=== PATIENT | female | born 1985 | race Caucasian/White ===

== ENCOUNTER → 2017-08-18 08:47 | Outpatient (CLI) | payer SELFPAY ==
[2017-08-18 10:08] LABS: Progesterone Level 56.39 ng/mL (See Comment)
[2017-08-18 11:34] LABS: hCG Titer Quant., Serum 1343 mIU/mL (<9 non-preg)
== END ==
PROVIDERS: Visit Provider Obstetrics & Gynecology
DX: O26.21 Pregnancy care for patient with recurrent pregnancy loss, first trimester (principal); Z3A.00 Weeks of gestation of pregnancy not specified
CPT/HCPCS: 36415; 84144; 84702

== ENCOUNTER → 2017-08-21 08:53 | Outpatient (CLI) | payer SELFPAY ==
[2017-08-21 10:18] LABS: hCG Titer Quant., Serum 4390 mIU/mL (<9 non-preg)
== END ==
PROVIDERS: Visit Provider Obstetrics & Gynecology
DX: O26.21 Pregnancy care for patient with recurrent pregnancy loss, first trimester (principal); Z3A.00 Weeks of gestation of pregnancy not specified
CPT/HCPCS: 36415; 84702

== ENCOUNTER → 2017-08-24 09:44 | Outpatient (CLI) | payer SELFPAY ==
[2017-08-24 12:47] LABS: Chlamydia Trachomatis by PCR Negative (Negative); Neisserai gonorrhoeae by PCR Negative (Negative); Probe Check PASS; Sample Adequacy Control PASS; Specimen Processing Control PASS
[2017-08-28 16:57] LABS: HPV Reflexed? NOT INDICATED
== END ==
PROVIDERS: Visit Provider Obstetrics & Gynecology
DX: Z12.4 Encounter for screening for malignant neoplasm of cervix (principal); Z11.3 Encounter for screening for infections with a predominantly sexual mode of transmission
CPT/HCPCS: 87491; 87591; 88175; G0145

== ENCOUNTER → 2017-09-07 10:07 | Outpatient (CLI) | payer MEDICAID, SELFPAY ==
[2017-09-07 10:44] LABS: Absolute Lymphocyte Count 2.37 X10^3/ul (0.83-4.51); Basophil# 0.02 X10^3/uL; Basophil% 0.2 % (0-1); Eosinophil# 0.14 X10^3/uL; Eosinophils% 1.6 % (0-5); Hematocrit 40.2 % (37-47); Hemoglobin 13.6 g/dl (12.0-15.0); Lymphocyte # 2.37 X10^3/ul (4.0); Lymphocyte % 26.7 % (19-41); Mean Corp Hgb Conc 33.8 g/gl (32-36); Mean Corpuscular Hgb 28.8 pg (27.0-32.0); Mean Platelet Vol. 9.8 fl (6.2-12.0); Monocyte# 0.36 X10^3/uL; Monocyte% 4.1 % (0-10); Neutrophil # 5.97 X10^3/uL (2.7-7.7); Neutrophil % 67.3 % (47-70); POSITIVE COUNT NO; POSITIVE DIFFERENTIAL NO; POSITIVE MORPHOLOGY NO; Platelet Count 293 K/mm3 (150-450); RBC Distribution Width CV 13.5 % (11.6-14.6); RBC Distribution Width SD 42.1 fl (35.1-43.9); Red Blood Count 4.73 M/mm3 (4.2-5.4); White Blood Count 8.9 K/mm3 (4.4-11.0)
[2017-09-07 10:52] LABS: Color, Urine Yellow (Yellow); Glucose, Dipstick Normal (Normal); Ketone-Dipstick Negative (Negative); Leukocyte Esterase-Dipstick 25 /ul (Negative); Nitrite-Dipstick Negative (Negative); Occult Blood-Urine Negative /ul (Negative); Protein-Dipstick Negative (Negative); Specific Gravity, Urine 1.005 (1.002-1.030); Urine Bilirubin Dipstick Negative (Negative); Urine Clarity Sl. Cloudy (Clear); Urine Urobilinogen Normal (Normal)
[2017-09-07 10:56] LABS: COTININE Drug Screen Positive (<200 ng/mL)
[2017-09-07 11:04] LABS: Amphetamine Urine VISTA NEGATIVE (<1000 ng/mL); Barbiturate Urine VISTA NEGATIVE (< 200 ng/mL); Benzodiazepine Urine VISTA NEGATIVE (< 200 ng/mL); Cocaine Urine VISTA NEGATIVE (< 300 ng/mL); Ecstacy Urine VISTA NEGATIVE (< 500 ng/mL); Methadone Urine VISTA NEGATIVE (< 300 ng/mL); PCP Urine VISTA NEGATIVE (< 25 ng/mL); THC Urine VISTA NEGATIVE (< 50 ng/mL); Vista UDS pH Range 6
[2017-09-07 11:12] LABS: Thyroid Stim Hormone (TSH) 2.33 uIU/mL (0.358-3.74)
[2017-09-08 01:13] LABS: Prenatal RPR NONREACTIVE (NONREACTIVE)
[2017-09-08 10:39] LABS: HIV - WCH Non-Reactive (Nonreactive); Rubella IgG 18.7 IU/mL
[2017-09-08 11:52] LABS: HEPATITIS B SURFACE AG Negative (Negative); Hep C Antibodies <0.1 s/co ratio (0.0-0.9)
== END ==
PROVIDERS: Visit Provider Obstetrics & Gynecology
DX: Z34.81 Encounter for supervision of other normal pregnancy, first trimester (principal)
CPT/HCPCS: 36415; 80307; 81002; 84443; 85025; 86703; 86762; 86803; 87340

== ENCOUNTER → 2017-11-14 09:37 | Outpatient (CLI) | payer MEDICAID, SELFPAY ==
[2017-11-21 16:11] LABS: AFP MoM Value 0.81 (.); AFP Value-EIA 21.7 ng/mL (.); Comment Report (.); DIA MoM Value 1.66 (.); DIA Value-EIA 210.25 pg/mL (.); DSR (By Age) 518 (.); DSR (Second Trimester) 3602 (.); Gestational Age 16.6 WEEKS (.); Insulin Dep Diabetes No (.); Maternal Age At EDD 32.1 yr (.); hCG MoM 0.52 (.); hCG Value 13002 mIU/mL (.)
[2017-11-22 11:38] LABS: Gestat. Age Based On Ultrasound (.)
== END ==
PROVIDERS: Visit Provider Obstetrics & Gynecology
DX: Z34.82 Encounter for supervision of other normal pregnancy, second trimester (principal)
CPT/HCPCS: 36415; 82105; 82677; 84702; 86336

== ENCOUNTER → 2018-02-06 12:20 | Outpatient (CLI) | payer MEDICAID, SELFPAY ==
[2018-02-06 12:28] LABS: Hematocrit 35.9 % (37-47); Mean Corp Hgb Conc 33.4 g/gl (32-36); Mean Corpuscular Hgb 30.3 pg (27.0-32.0); Mean Corpuscular Volume 90.7 fL (81-99); Mean Platelet Vol. 10.8 fl (6.2-12.0); Platelet Count 267 K/mm3 (150-450); RBC Distribution Width SD 42.8 fl (35.1-43.9); Red Blood Count 3.96 M/mm3 (4.2-5.4); White Blood Count 10.2 K/mm3 (4.4-11.0)
[2018-02-06 12:29] LABS: Scan Indicated on CBC? Y/N NO
[2018-02-06 12:39] LABS: Glucose Challenge Gest 1H 50g 127 mg/dL (70-140)
== END ==
PROVIDERS: Visit Provider Obstetrics & Gynecology
DX: Z34.83 Encounter for supervision of other normal pregnancy, third trimester (principal)
CPT/HCPCS: 82950; 85027

== ENCOUNTER 2018-02-23 18:45 | Outpatient (CLI) | payer MEDICAID, SELFPAY ==
[2018-02-23 19:28] VITALS: BMI 37.4
--- NOTE | 2018-02-23 23:55 | OB.TRI.NOTE ---
History of Present Illness Date of Service: 02/23/18 Reason For Visit: DECREASED MOVEMENT Final ESE: 04/27/18 Final ESE Source: US <20 weeks Gestational age: 31 weeks 0 days History of Present Illness: 33yo at 31wga with c/o decreased movement Allergies bee venom protein (honey bee) Allergy (Verified 02/23/18 19:31) Anaphylaxis Physical Exam Vitals: VSS NST - FHR Rate Baby A Baseline: 135 Variability:: Moderate Accelerations:: 15 x 15 Decelerations:: None NST Reactive:: Yes FHR Category:: Category I Uterine Activity:: 0-05/10 Impression/Plan 33yo @ 31 wga with decreased FM -Reactive NST -Pt reported movement during observation -d/c home
== END 2018-02-23 20:00 | disposition home or self-care (01) ==
LOC: WPOUT 19:18 → WP 19:19
PROVIDERS: Referring Provider Obstetrics & Gynecology; Visit Provider Obstetrics & Gynecology
DX: O36.8130 Decreased fetal movements, third trimester, not applicable or unspecified (principal); Z3A.31 31 weeks gestation of pregnancy
CPT/HCPCS: 59025; 59050; 99218; G0378

== ENCOUNTER → 2018-03-27 14:41 | Outpatient (CLI) | payer MEDICAID, SELFPAY ==
--- OUTSIDE RECORDS SUMMARY | 2018-05-23 06:40 | XMS RPT_ITS ---
:1985 Author Organization [place] Support Name Relationship Address Phone LATONYA VELASCO Unavailable [address] + [address] [place] [address] [facility] Unavailable [address] + [place] [address] LATONYA VELASCO Unavailable [address] + [place] [address] [facility] Unavailable [address] + [place] [address] LATONYA VELASCO Unavailable [address] + [place] [address] [facility] Unavailable [address] + [place] [address] LATONYA VELASCO Unavailable [address] + [place] [address] [facility] Unavailable [address] + [place] [address] KRISTA LATONYA Unavailable [address] + [place] [address] [facility] Unavailable [address] +. [place] [address] LATONYA VELASCO Unavailable [address] + [place] [address] [facility] Unavailable [address] +. [place] [address] LATONYA VELASCO Unavailable [address] + [address] [place], [place] [id number] NOT GIVEN Unavailable Unavailable Unavailable LATONYA VELASCO Unavailable [address] + [place] [address] [facility] Unavailable [address] +. [place] [address] LATONYA VELASCO Unavailable [address] + [place] [address] [facility] Unavailable [address] +. [place] [address] LATONYA VELASCO Unavailable [address] + [place] [address] [facility] Unavailable [address] +. [place] [address] LATONYA VELASCO Unavailable [address] + [place] [address] [facility] Unavailable [address] +. [place] [address] Care Team Providers Name Role Phone STACY MACK Admitting Unavailable STACY MACK Attending Unavailable NO, DOCTOR ON Referring Unavailable STACY MACK Primary Care Unavailable NO, DOCTOR ON Consulting Unavailable Sealalon, Donald Attending Unavailable Seals, Donald Attending Unavailable Sterling, David Attending Unavailable Vo-Benjamín, Margot Attending Unavailable Vo-Benjamín, Margot Referring Unavailable Seals, Donald Attending Unavailable Omar, Crystal Attending Unavailable Seals, Donald Attending Unavailable Seals, Donald Attending Unavailable Seals, Donald Attending Unavailable Seals, Donald Admitting Unavailable Seals, Donald Attending Unavailable Seals, Donald Referring Unavailable Primay Care Physicia, No Primary Care Unavailable PROBLEMS PROBLEMS DATE TYPE CONDITION / CODE ATTENDING STATUS SOURCE 03/27/2018 Unknown Z36.85 - Encounter Donald Walls Active [place] for [facility] screening for Hospital Streptococcus B / Repository Z36.85(ICD-10) 02/06/2018 Unknown Z34.83 - Encounter Donald Walls Active [place] for supervision of Community other normal Hospital , third Repository trimester / Z34.83(ICD-10) 11/21/2017 Unknown Z34.82 - Encounter Crystal Nelson Active [place] for supervision of Community other normal Hospital , second Repository trimester / Z34.82(ICD-10) 09/07/2017 Unknown Z34.81 - Encounter Donald Walls Active [place] for supervision of Community other normal Hospital , first Repository trimester / Z34.81(ICD-10) 08/24/2017 Unknown Z12.4 - Encounter Titi Donald Active [place] for screening for Community malignant neoplasm Hospital of cervix / Repository Z12.4(ICD-10) 08/24/2017 Unknown Z11.3 - Encounter Titi Donald Active [place] for screening for Community infections with a Hospital predominantly Repository sexual mode of transmission / Z11.3(ICD-10) PROCEDURES PROCEDURES No Procedure Records FoundRESULTS RESULTS DISCHARGE SUMMARY Observed: 04/17/2018 Status: F Source: CARRIE 8:30 AM [facility] REPOSITORY [facility] Medical Records Department [address] [address] Discharge Summary 04/17/18 0828 MR#: [id number] Acct: [id number] Name: ROSARIO VELASCO Rep #: [id number] : 1985 33 From: Donald Walls MD PCP: Care Physician, No Primary Status: ADM IN Location: [place] [address] Discharge Date and Diagnosis Date of Admission: 04/15/18 Date of Discharge: 04/17/18 - Primary Discharge Diagnosis S/P Hospital Course and Treatment Operations: None Procedures: - - Summary of Care Provided: The patient is a 33 year old F [] Admitted at [address] in advanced active labor. Progressed to FD then pushed for a short time to deliver a live female neionate without complication. Post course unremarkable. Discharged home on PP day#2. - Physical Exam Vital Signs Temp Pulse Resp BP Pulse Ox 97.0 F L 87 16 132/67 H 100 04/17/18 08:15 04/17/18 08:15 04/17/18 08:15 04/17/18 08:15 04/17/18 08:15 Oxygen Delivery Method Room Air Weight: 248 lb Body Mass Index (BMI) 37.7 Intake and Output for Last 24 Hours Output Total 550 / 550 Balance -550 / -550 Discharge Diet: No Restrictions Discharge Activity: Return to Normal Activity, May Drive, May Shower Return to work on:: 06/17/18 May resume sexual activity in: 6 weeks Call your doctor if your incision/area has: Sudden Increased Bleeding, Increased Pain/ Swelling, Foul Smelling Discharge Call your doctor if you observe: Fever of 101 or Higher, Inability to urinate, Inability to have a bowel movement, Using more than one pad per hour, Shortness of breath, Chest pain, Calf discomfort, Uncontrolled pain Cleanse incision/area with: Soap AND Water Home Medications: Medications to take at Discharge Pantoprazole Sodium [Protonix] 40 mg PO DAILY 02/23/18 Vits [Prenatabs FA ] 1 tablet PO DAILY 02/23/18 Enoxaparin [Lovenox] 40 mg SC DAILY@0600 syringe 04/16/18 Ibuprofen 600 mg PO 4X/DAY #30 tab 04/16/18 Following Prescrptions Were Given to Patient: Ibuprofen 600 mg PO 4X/DAY #30 tab Primary Care Physician: Care Physician,No Primary [Primary Care Provider] - Please Follow Up With: Donald Walls MD When: 6 weeks Disposition: Home Minutes spent on discharge:: 15 Patient Condition:: Good Medical Necessity - Tobacco Use Smoking Status: Current every day smoker Meaningful Use Info Meaningful Use Diagnoses (Choose all that apply): None applicable 04/17/18 0830 <Electronically signed by Donald Walls MD> Date Donald Walls MD Cosigner Signature (if applicable): Date CC: No Primary Care Physician; Donald Walls MD Signed CBC-COMPLETE BLOOD CNT Collected: 04/16/2018 Status: F Source: CARRIE NO DIFF 5:35 AM [facility] REPOSITORY Order Comment: Reason for Laboratory Test Day #1 TYPE CODE TESTS RESULT OUT OF RANGE REFERENCE UNITS LAB L100.1000 4.4-11.0 K/mm3 High WBC 19.1 LAB L100.1200 4.2-5.4 M/mm3 Low RBC 3.59 LAB L100.1300 12.0-15.0 g/dl Low HGB 10.2 LAB L100.1400 37-47 % Low HCT 31.0 LAB L100.1500 81-99 fL Normal MCV 86.4 LAB L100.1600 27.0-32.0 pg Normal MCH 28.4 LAB L100.1700 32-36 g/gl Normal MCHC 32.9 LAB L100.1810 11.6-14.6 % Normal RDW CV 13.2 LAB L100.1820 35.1-43.9 fl Normal RDW SD 40.4 LAB L100.1900 150-450 K/mm3 Normal PLT 233 LAB L100.2000 6.2-12.0 fl Normal MPV 10.2 Performed By: #### L100.0500 #### [facility] [address] [facility] [place], [place], [id number] CBC-COMPLETE BLOOD CNT Collected: 04/16/2018 Status: F Source: TWISP NO DIFF 12:45 AM [facility] REPOSITORY TYPE CODE TESTS RESULT OUT OF RANGE REFERENCE UNITS LAB L100.1000 4.4-11.0 K/mm3 High WBC 18.8 LAB L100.1200 4.2-5.4 M/mm3 Low RBC 3.96 LAB L100.1300 12.0-15.0 g/dl Low HGB 11.3 LAB L100.1400 37-47 % Low HCT 34.0 LAB L100.1500 81-99 fL Normal MCV 85.9 LAB L100.1600 27.0-32.0 pg Normal MCH 28.5 LAB L100.1700 32-36 g/gl Normal MCHC 33.2 LAB L100.1810 11.6-14.6 % Normal RDW CV 13.2 LAB L100.1820 35.1-43.9 fl Normal RDW SD 40.8 LAB L100.1900 150-450 K/mm3 Normal PLT 243 LAB L100.2000 6.2-12.0 fl Normal MPV 10.5 Performed By: #### L100.0500 #### [facility] [address] [place], [place], [id number] TYPE AND SCREEN Collected: 04/16/2018 Status: F Source: TWISP 12:45 AM [facility] REPOSITORY Order Comment: Reason for Type AND Screen/Red Cells: ROUTINE TYPE CODE TESTS RESULT OUT OF RANGE REFERENCE UNITS LAB B10.0800 O Normal BLOOD TYPE GEL POSITIVE LAB B100.4000 Normal Antibody NEGATIVE Screen Performed By: #### B101.7450 #### [facility] [address] [place], [address] DISCHARGE INSTRUCTION Observed: 04/16/2018 Status: F Source: CARRIE 12:30 AM [facility] REPOSITORY [facility] Medical Records Department [address] [address] Instructions for Home/Discharge Instructions 04/16/18 0029 MR#: [id number] Acct: [id number] Name: ROSARIO VELASCO Rep #: [id number] : 1985 33 From: Donald Walls MD PCP: Care Physician, No Primary Status: ADM IN Discharge Diet: No Restrictions Discharge Activity: Return to Normal Activity, May Drive, May Shower Return to work on:: 06/17/18 May resume sexual activity in: 6 weeks Call your doctor if your incision/area has: Sudden Increased Bleeding, Increased Pain/ Swelling, Foul Smelling Discharge Call your doctor if you observe: Fever of 101 or Higher, Inability to urinate, Inability to have a bowel movement, Using more than one pad per hour, Shortness of breath, Chest pain, Calf discomfort, Uncontrolled pain Cleanse incision/area with: Soap AND Water Additional Instructions: If you experience any of the following, contact your healthcare provider. * Bleeding that soaks a pad every hour for 2 hours * Fever 100.4 or higher * Unrelieved incision or abdominal pain * Swelling, redness, discharge or bleeding from your incision or episiotomy site * Your incision begins to separate * Problems urinating (including inability to urinate or burning while urinating). * Visual changes * Severe headache * Flu-like symptoms * Pain or redness in one of both of your breasts * Pain, warmth, tenderness or swelling in your legs, especially the calf area * Frequent nausea and vomiting * Symptoms of depression or anxiety If you experience any of the following, call 911 or go to the nearest Emergency Room. * Chest pain * Problems breathing * Seizure activity * Partial or complete paralysis of a body part, slurred speech, weakness or drooping of the face, or a sudden inability to walk or hold your balance Allergies/Adverse Reactions: Allergies bee venom protein (honey bee) Allergy (Verified 04/15/18 23:19) Anaphylaxis Medications to take at Discharge Pantoprazole Sodium [Protonix] 40 mg PO DAILY 02/23/18 Vits [Prenatabs FA ] 1 tablet PO DAILY 02/23/18 Enoxaparin [Lovenox] 40 mg SC DAILY@0600 syringe 04/16/18 Ibuprofen 600 mg PO 4X/DAY #30 tab 04/16/18 The following prescriptions were given: Ibuprofen 600 mg PO 4X/DAY #30 tab Please Follow Up With: Donald Walls MD When: 6 weeks Primary Care Physician: Care Physician,No Primary [Primary Care Provider] - Test Results: Test results from this visit will be discussed in further detail at your follow-up appointment, if applicable. Proposed Discharge Date: 04/17/18 04/16/1829 <Electronically signed by Donald Walls MD> Date Donald Walls MD CC: No Primary Care Physician OPERATIVE REPORT Observed: 04/16/2018 Status: F Source: TWISP 12:27 AM [facility] REPOSITORY [facility] Medical Records Department [address] [place] [address] Operative Report 04/16/18 0023 MR#: [id number] Acct: [id number] Name: ROSARIO VELASCO Rep #: [id number] : 1985 33 From: Donald Walls MD PCP: Care Physician, No Primary Status: ADM IN Location: [place] [id number] Vaginal Delivery Maternal Presentation: Active Labor 38w4d ega in active labor Amniotic Membrane Rupture Type: Artificial Rupture of Membrane time: 2330 Amniotic Fluid Description: Moderate meconium Final ESE: 04/25/18 Final ESE Source: US <20 weeks Gestational age: 38 Weeks and 5 Days doctor who attended delivery (if requested by OB): Adriana Elise Date of Procedure: 04/15/18 Pre-Operative Diagnosis: Labor Post-Operative Diagnosis: same Surgery/ Procedure Performed: Spontaneous Vaginal Delivery Type of Anesthesia: None Description of Procedure: Presented at 8 cm dilated. After AROM progressed within 10 minutes to FD then pushed for 2 contractions to deliver a live female without complication. At delivery the cord was clamped and cut and the baby taken to the warmer for evaluation. Apgars were 8/9. The placenta was delivered spontaneously intact with a marginally located 3VC with possible vessels transversing the membranes. Meconium staing was noted. The uterus contracted well. The cervix and vagina was inspected and there was a small posterior vaginal first degree tear. This was repaired under local anesthetic with 2-0 Vicryl Presentation: Vertex Placental Delivery Description: Spontaneous Placenta Disposition: Sent to Pathology Percentage of Placenta Abruption: 0 Cord Vessel Description: 3 Vessels Nuchal Cord Compression: Without compression Cord Entanglement: None Estimated Blood Loss: 400cc Infant A gender: Female (1 minute): 8 (5 minute): 9 Episiotomy Description: None Laceration: Midline, Vaginal Extension/lac, 1st degree Medications given after delivery: IV Pitocin Complications: None 04/16/18 0027 <Electronically signed by Donald Walls MD> Date Donald Walls MD CC: No Primary Care Physician; Donald Walls MD Signed PLACENTA Observed: 04/16/2018 Status: F Source: TWISP 12:19 AM [facility] REPOSITORY Patient: ROSARIO VELASCO : 1985 (33/) Acct Num: [id number] Phys: Donald Walls MD Unit Num: [id number] Loc: WP [id number] Specimen: [id number] Received: 04/16/18 - 0148 Spec Type: PLACENTA TISSUES 1 TISSUES: Placenta, NOS GROSS DESCRIPTION SPECIMEN: PLACENTA / CLINICAL INFORMATION: A. Weight: 3.584 B. Gestational Age: 38 weeks C. Sex: Female PLACENTAL WEIGHT (POST FIXATION): 493 gm PLACENTAL DIMENSIONS: 16.5 x 14 x 3 cm PLACENTAL SHAPE: Usual ovoid PLACENTAL WEIGHT FOR GESTATIONAL AGE: Within 10-99th percentile MEMBRANES - Present A. Insertion: Marginal B. Site of rupture from edge: At edge of placental disc C. Color of membrane: Payne-perez D. Abnormalities: None UMBILICAL CORD - Present A. Color: Payne-perez B. Insertion: Eccentric C. Length: 40 cm D. Diameter: 1.5 cm E. Number of vessels: Three F. Abnormalities: None PLACENTAL DISC - Present A. Color of surface: Payne-perez B. surface abnormalities: None C. Maternal cotyledons: Intact with minimal tears D. Attached retro placental clot: No clot E. Cut surface: Dark red and spongy F. Lesions: None G. Separate clot: Absent SECTIONS SUBMITTED: 1. Membrane roll and umbilical cord ( end notched) 2. Placental disc, and maternal surfaces 3. Placental disc, and maternal surfaces 4. Placental disc, and maternal surfaces AM: 04/16/18 TC:2 CPT: 93048 HEADER OPERATION: Vaginal delivery PRE-OP DIAGNOSIS: Meconium TISSUE SUBMITTED: Placenta MICROSCOPIC DESCRIPTION Slides are reviewed. MICROSCOPIC DIAGNOSIS Mckeon placenta (493 gm): Umbilical cord - trivascular with no inflammation. Placental membranes - acute chorionitis and deciduitis. Placental disc - Aaron-Amado change and acute and chronic decidual inflammation. AM: 04/17/18 Signed Maynor Bowers, 04/17/18 <signature on file> Performed By: #### PPLAC #### [facility] [address] [facility] [place], [place], [id number] Observed: 03/27/2018 Status: F Source: TWISP CULTURE, GROUP B 11:15 AM [facility] REPOSITORY Comments: VAGINAL/RECTAL CHANDRIKA Culture Group B Beta Streptococcus is not isolated. Performed By: #### M100.1800 #### [facility] [address] [place], [place], [address] CBC-COMPLETE BLOOD CNT Collected: 02/06/2018 Status: F Source: CARRIE NO DIFF 10:15 AM [facility] REPOSITORY TYPE CODE TESTS RESULT OUT OF RANGE REFERENCE UNITS LAB L100.1000 4.4-11.0 K/mm3 Normal WBC 10.2 LAB L100.1200 4.2-5.4 M/mm3 Low RBC 3.96 LAB L100.1300 12.0-15.0 g/dl Normal HGB 12.0 LAB L100.1400 37-47 % Low HCT 35.9 LAB L100.1500 81-99 fL Normal MCV 90.7 LAB L100.1600 27.0-32.0 pg Normal MCH 30.3 LAB L100.1700 32-36 g/gl Normal MCHC 33.4 LAB L100.1810 11.6-14.6 % Normal RDW CV 13.0 LAB L100.1820 35.1-43.9 fl Normal RDW SD 42.8 LAB L100.1900 150-450 K/mm3 Normal PLT 267 LAB L100.2000 6.2-12.0 fl Normal MPV 10.8 Performed By: #### L100.0500 #### [facility] [address] [place], [address] GLUCOSE CHALLENGE GEST Collected: 02/06/2018 Status: F Source: CARRIE 1H 50G 10:15 AM [facility] REPOSITORY TYPE CODE TESTS RESULT OUT OF RANGE REFERENCE UNITS LAB L501.0250 70-140 mg/dL Normal GLU GEST 127 50g 1H Performed By: #### L501.0250 #### [facility] [address] [place], [address] AFP TETRA QUAD Collected: 11/14/2017 Status: F Source: CARRIE SCREEN 9:43 AM [facility] REPOSITORY Order Comment: Is Patient ? Y Enter Completed Weeks of Gestation: 16.0 Patient's Weight (LBS.): 244 Race: / White Number of Fetuses: 1 Is Patient Insulin-Dependent Diabetic?: N TYPE CODE TESTS RESULT OUT OF REFERENCE UNITS RANGE LAB L3290.110 . 0 TEST Normal RESULTS: *Screen Negative* LAB L3290.120 . WEEKS 0 16.6 Normal GESTATIONAL AGE LAB L3290.130 . 0 GEST AGE Normal FROM Ultrasound Result Comment: 16.6 on 11/14/2017 LAB L3290.1400 . yr MATRNL AGE @ESE 32.1 Normal LAB L3290.1500 . RACE Normal LAB L3290.1600 . lbs WEIGHT 244 Normal LAB L3290.1700 . INS DEP DIABETE No Normal LAB L3290.1800 . MULT GESTATION No Normal LAB L3290.1900 . ng/mL AFP VALUE-EIA 21.7 Normal LAB L3290.2000 . AFP MOM VALUE 0.81 Normal LAB L3290.2100 . mIU/mL HCG VALUE 75276 Normal LAB L3290.2200 . HCG MOM 0.52 Normal LAB L3290.2300 . ng/mL UE3 VALUE 0.88 Normal LAB L3290.2400 . UE3 MOM 1.11 Normal LAB L3290.2500 . pg/mL TABBY VALUE-EIA Normal 210.25 LAB L3290.2600 . TABBY MOM VALUE 1.66 Normal LAB L3290.2700 . OSBR RISK 91056 Normal LAB L3290.2800 . DSR 2ND TRIMEST 3602 Normal LAB L3290.2900 . DSR (BY AGE) 518 Normal LAB L3290.3100 . T18 RISK Not Normal increased LAB L3290.3200 . T18 (BY AGE) Normal 1:2020 LAB L3290.3300 . INTERPRETATION Normal Comment Result Comment: Interpretation: Screen Negative This result is screen negative for OSB, Down Syndrome and Trisomy 18. The AFP MoM and patient specific risks calculated are based on the gestational age and the clinical information provided. This test can identify up to 80% of open neural tube defects. Closed neural tube defects and some open defects may not be detected by this test. The combination of maternal age, AFP, hCG, uE3, and TABBY identifies 75-80% of Down Syndrome. The combination of maternal age, AFP, hCG and uE3 identifies 60% of Trisomy 18 pregnancies. The [employer] recommends amniocentesis be offered to women age 35 and older. Recalculations are not recommended when gestational dating by LMP and ultrasound are within 10 days. Performed By: #### L3290.0100 #### [facility] (refer to report for specific site) refer to report for address and phone number US OB INITIAL< 14 Observed: 10/09/2017 Status: F [facility]; 1ST GESTATION 10:18 AM [place] [address] Patient: ROSARIO VELASCO Phone#: : 1985 Age: 32 Gender: F Pt. Type: ER Account: [id number] Location: [facility] Ordering: STACY MACK Exam Date: 10/07/2017/10:17 Family Phys: NO DOCTOR Charge Code: 864225 Physician: [place] Order #: [id number] DLP Dose#: PROCEDURE: OB INITIAL <14 WEEKS ULTRASOUND, TRANSABDOMINAL COMPARISON: [facility], , OB INITIAL <14 WEEKS, 11/16/2011, 11:25. INDICATIONS: Pelvic pain TECHNIQUE: Transabdominal pelvic ultrasound examinations were performed. FINDINGS: GESTATIONAL SAC: Present and normal appearing. POLE: Present and normal appearing. YOLK SAC: Not identified CARDIAC ACTIVITY: Present. 176 bpm UTERUS: Normal. ADNEXAE/OVARIES: Normal. CUL-DE-SAC: Normal. CERVICAL LENGTH: N/A CLINICAL AGE: 11 weeks one day SONOGRAPHIC AGE: 11 weeks 2 days PLACENTA: Unable to visualize due to age. AMNIOTIC FLUID VOLUME: Normal for age. OTHER: Negative. CONCLUSION: 1. SLIUP 11 weeks 2 days, ESE 04/26/2018. Dictated by: Prabha Moss MD on 10/09/2017 at 11:12 Approved by: Prabha Moss MD on 10/09/2017 at 11:12 EMERGENCY REPORT Observed: 10/09/2017 Status: F Source: [facility] 4:53 AM [facility] [place] [place] EMERGENCY ROOM REPORT NAME ACCOUNT SEX AGE ADMIT DISCHARGE PT MED. RECORD# NUMBER DATE DATE TYPE ROSARIO VELASCO [id number] F 32 10/07/17 10/07/17 3 R [id number] ROOM: ER DATE OF : 1985 DICTATING PHYSICIAN: Donald Liang CHIEF COMPLAINT/HISTORY OF PRESENT ILLNESS: This is a 32-year-old white female that is approximately 10 weeks , stating that she has some bilateral lower pelvic/abdominal pain. She describes it as cramping in nature. It does come and go. It does not last for long, but she has had it off and on. She has had 6 previous miscarriages, so she was somewhat concerned about it. She denies any vaginal bleeding or spotting. She sees Dr. Walls in [place] for OB- SPEECH LANGUAGE PATHOLOGY ASSISTANT. Presently rates the pain as a 5 on a severity scale of 1 to 10, as noted it is intermittent, it does not radiate through to her back. PAST MEDICAL HISTORY: Six previous miscarriages. PAST SURGICAL HISTORY: Include tonsillectomy. MEDICATIONS: She is presently on lovanox. She was not exactly sure why they have her on that, but she said it was somethign about a clotting disorder to help facilitate the . She aslo takes progesterone and baby aspirin and she is under the care of Dr. Walls in OB-SPEECH LANGUAGE PATHOLOGY ASSISTANT. ALLERGIES: No known drug allergies. SOCIAL HISTORY: She does not smoke. Does not drink alcohol. Lives at home with her . Last menstrual period was July 21 of this year. She is a 8, para with 6 previous miscarriages. REVIEW OF SYSTEMS: The patient denies any chest pain, shortness of breath, cough, sputum, wheezing. Does admit to some intermittent abdominal pain. Denies any nausea, vomiting, diarrhea, constipation, melena, hematochezia, headache, numbness, unsteady gait, weakness, neck or back pain, joint pain, skin rashes, swelling, hives, hayfever, swollen glands. Further review of systems negative. PHYSICAL EXAMINATION: Blood pressure is 146/102, pulse 98, respirations 18, temperature 98.2, pulse oximetry 96%. Weight 242 pounds. The patient is alert and oriented x3. She presently appears in no acute distress. She is very pleasant and cooperative, smiling. HEENT: Head appears atraumatic. Pupils are equal and reactive to light. Red reflex intact bilaterally. Extraocular muscles intact. No conjunctival injection. No scleral icterus or lid edema. Ears: TMs intact bilaterally. No erythema Page 1 of 3 ROSARIO VELASCO R Emergency Room Report noted. No external auditory canal edema or bleeding. Nose exhibits no rhinorrhea or epistaxis. Mouth: Mucous membranes are moist. No pharyngeal erythema. Uvula is midline and elevates. Neck is supple. Trachea is midline. No JVD or lymphadenopathy. No posterior cervical tenderness. No nuchal rigidity. Lungs are clear to auscultation in all lung yu. No adventitious sounds are noted. No accessory muscle use. CVS: Heart rate and rhythm is regular without murmur. Abdomen is soft, gravid, nontender with normoactive bowel sounds x4 quadrants. No guarding or rigidity. No rebound. No palpable abdominal masses. No hepatosplenomegaly. Back exhibits no midline or paraspinal region tenderness. No increased paraspinal muscle rigidyt. Negative Bin sign. Extremities: No edema or cyanosis. Peripheral pulses are intact. No motor or sensory deficits are noted. Hand hydraulic mechanic strong, symmetric. Skin is warm and dry. No diaphoresis or rash. Neurologic examination shows the patient to be alert and oriented x4. No motor or sensory deficits are noted. Normal speech. Pleasant, cooperative, with normal affect. DIAGNOSTIC DATA: Her pelvic ultrasound showed a single live intrauterine with estimated gestational age 11 weeks, 2 days. The heart rate was 176 beats per minute. When we took heart tones here, we got 135. Normal amniotic fluid volume. ESE April 26, 2018. No bleed. No features of ectopic. Right and left ovary are not seen. No free fluid in the pelvis. EMERGENCY DEPARTMENT COURSE AND TREATMENT: The patient denied any urinary urgency, frequency, dysuria, burning, but we went ahead and did a urine anyhow and it looks okay. She had a negative nitrite. The specific gravity is 1.010. Clarity was clear. She had 1 to 5 white cells with a trace of bacteria, but she also had a few epithelial cells. I did send that for culture, but I am not going to treat her because she is having no symptoms. DIAGNOSES: 1. Abdominal pain. 2. . PLAN/DISPOSITION: I went over these results with the patient and she feels much relieved. I did talk to her about some blood work, but she is feeling good enough and they have been checking blood work in the office. She does not want to wait for any blood work, so we are going to let her go home. Did advise her vaginal rest. No intercourse, tampons or douching and to follow up with Dr. Walls this coming week. If she had any worsening symptoms or any other problems, especially any vaginal bleeding, she is to return to the emergency department. The patient was discharged in a clinically stable condition. Nurse notes reviewed. Dictated By: Donald Liang DO 10/07/17 20:44 JOB #: [id number] Transcribed By: vanessa 10/08/17 09:52 Page 2 of 3 ROSARIO VELASCO Emergency Room Report Electronically signed by: E-Sign: Dr. Donald Liang D.O. 10/09/17 04:52 Page 3 of 3 ROSARIO VELASCO Emergency Room Report US OB INITIAL >OR= Observed: 10/07/2017 Status: F Source: NEERAJ SYED 14 WEEKS; 1ST GESTAT 7:49 PM [facility] REPOSITORY [place] [address] Patient: ROSARIO VELASCO Phone#: : 1985 Age: 32 Gender: F Pt. Type: ER Account: [id number] Location: 052 Ordering: STACY MACK Exam Date: 10/07/2017/10:17 Family Phys: NO DOCTOR Charge Code: 050031 Physician: [place] Order #: [id number] [id number] Dose#: PROCEDURE: OB INITIAL <14 WEEKS ULTRASOUND, TRANSABDOMINAL COMPARISON: [facility], , OB INITIAL <14 WEEKS, 11/16/2011, 11:25. INDICATIONS: Pelvic pain TECHNIQUE: Transabdominal pelvic ultrasound examinations were performed. FINDINGS: GESTATIONAL SAC: Present and normal appearing. POLE: Present and normal appearing. YOLK SAC: Not identified CARDIAC ACTIVITY: Present. 176 bpm UTERUS: Normal. ADNEXAE/OVARIES: Normal. CUL-DE-SAC: Normal. CERVICAL LENGTH: N/A CLINICAL AGE: 11 weeks one day SONOGRAPHIC AGE: 11 weeks 2 days PLACENTA: Unable to visualize due to age. AMNIOTIC FLUID VOLUME: Normal for age. OTHER: Negative. CONCLUSION: 1. SLIUP 11 weeks 2 days, ESE 04/26/2018. Dictated by: Prabha Moss MD on 10/09/2017 at 11:12 Approved by: Prabha Moss MD on 10/09/2017 at 11:12 URINALYSIS Collected: 10/07/2017 Status: F Source: NEERAJ SYED 7:48 PM [facility] REPOSITORY TYPE CODE TESTS RESULT OUT OF REFERENCE UNITS RANGE LAB URINALYSIS (LOINC) URINALYSIS Result Comment: URINALYSIS LAB Specimen Type(LOINC) Specimen Type UNSPECIFIED LAB Color(LOINC) NORMAL: YELLOW Color p.yel LAB Clarity(LOINC) NORMAL: CLEAR Clarity clear LAB ph(LOINC) NORMAL: 5.0-8.0 ph 7 LAB Protein(LOINC) NORMAL: NEGATIVE Protein NEG LAB Glucose(LOINC) NORMAL: NORMAL Glucose NORM LAB Ketone(LOINC) NORMAL: NEGATIVE Ketone NEG LAB Bilirubin(LOINC) NORMAL: NEGATIVE NEG Bilirubin LAB Blood(LOINC) NORMAL: NEGATIVE Blood NEG LAB Urobilinog(LOINC NORMAL: ) NORMAL NORM Urobilinog LAB Sp NORMAL: Lugoff(LOINC) 1.010-1.030 Sp 1.010 Lugoff LAB Nitrite(LOINC) NORMAL: NEGATIVE Nitrite NEG LAB Leukocytes(LOINC NORMAL: ) NEGATIVE 25 Abnormal Leukocytes LAB Microscopic(LOIN C) SEE Microscopic BELOW Result Comment: MICROSCOPIC LAB Wbc(LOINC) 0-5/hpf Wbc 1-5 LAB Rbc(LOINC) 0-3/hpf Rbc NONE LAB Casts(LOINC) Casts NONE LAB Crystals(LOINC) Crystals NONE LAB Amorphous(LOINC) Amorphous 1+ LAB Bacteria(LOINC) Bacteria TRACE LAB Epi Cells(LOINC) Epi Cells FEW LAB Mucous(LOINC) Mucous NONE LAB Yeast(LOINC) Yeast NONE Performed By: #### [id number] #### [facility],[address] [place] [address] Observed: 10/07/2017 Status: F Source: [facility] CULTURE URINE 7:48 PM [facility] REPOSITORY CULTURE URINE _URINE CULTURE_ M I C R O B I O L O G Y R E P O R T FINAL Antimicrobial Susceptibility and Organism Identification Report Specimen Number : [id number] Requested : 10/07/17 Specimen Source : URINE Collected : 10/07/17 19:48 [place] of Isolation : Emergency Room Received : 10/07/17 19:48 Requesting Physician : MARTINA Patient/Specimen Tests and Comments Specimen Comments FINAL REPORT: URINE COLONY COUNT: 50,000-100,000 CFU/CC >OR=TO 3 COLONY TYPES PROBABLE CONTAMINATION Tech : Source : URINE ID # : [id number] FINAL Report Date : / / : Collected : 10/07/17 19:48 10/10/17.1231.BKO. 10/09/17.1152.KLS. 10/10/17.1231.BKO.COMPLETE Performed By: #### [id number] #### Neeraj [facility],[address] [place] [address] URINE DRUG SCREEN Collected: 09/07/2017 Status: F Source: CARRIE (NABEEL) 10:10 AM [facility] REPOSITORY Order Comment: List of Drugs Taken or Suspected? UNK TYPE CODE TESTS RESULT OUT OF RANGE REFERENCE UNITS LAB L505.0075 TO BE Normal CONFIRMED Result Comment: CONFIRMATORY TESTING FOR ALL POSITIVE URINE DRUG SCREEN RESULTS WILL ONLY BE SENT OUT UPON PHYSICIAN ORDER. ANTWAN Urine Drug Screen methods provide only preliminary analytical test results. A more specific alternate chemical method must be used in order to obtain a confirmed analytical result. Gas chromatography/mass spectrometery (GC/MS) is the preferred confirmatory method. Clinical consideration and professional judgement should be applied to any drug of abuse test result, particularly when preliminary positive results are used. URINE TCA TESTING MUST BE ORDERED SEPARATELY. USE TEST MNEMONIC: UTCA LAB L505.5005 VISTA UDS PH 6 Normal LAB L505.5015 <1000 ng/mL AMPHETAMINES Normal NEGATIVE LAB L505.5025 < 200 ng/mL BARBITIURATES Normal NEGATIVE LAB L505.5035 < 200 ng/mL BENZODIAZIPINE Normal NEGATIVE LAB L505.5045 < 300 ng/mL COCAINE Normal NEGATIVE LAB L505.5055 < 500 ng/mL ECSTACY Normal NEGATIVE LAB L505.5065 < 300 ng/mL METHADONE Normal NEGATIVE LAB L505.5075 < 300 ng/mL OPIATES Normal NEGATIVE LAB L505.5085 < 25 ng/mL PCP Normal NEGATIVE LAB L505.5095 < 50 ng/mL THC Normal NEGATIVE Performed By: #### L505.5000, L505.6240 #### [facility] [address] [place], [place], [id number] NICOTINE URINE DRUG Collected: 09/07/2017 Status: F Source: TWISP SCREEN 10:10 AM [facility] REPOSITORY Order Comment: List of Drugs Taken or Suspected? UNK TYPE CODE TESTS RESULT OUT OF RANGE REFERENCE UNITS LAB L505.6250 TO BE Normal CONFIRMED Result Comment: CONFIRMATORY TESTING FOR ALL POSITIVE URINE DRUG SCREEN RESULTS WILL ONLY BE SENT OUT UPON PHYSICIAN ORDER. The results of Urine Drug Screen methods provide only preliminary analytical test results. A more specific alternate chemical method must be used in order to obtain a confirmed analytical result. Gas chromatography/mass spectrometery (GC/MS) is the preferred confirmatory method. Clinical consideration and professional judgement should be applied to any drug of abuse test result, particularly when preliminary positive results are used. LAB L505.6270 <200 ng/mL High COT DRG Positive SCREEN Result Comment: Cotinine is the first-stage metabolite of Nicotine. Performed By: #### L505.5000, L505.6240 #### [facility] [address] [place], [place], [address] CBC W/DIFF, AUTOMATED Collected: 09/07/2017 Status: F Source: CARRIE 10:10 AM [facility] REPOSITORY TYPE CODE TESTS RESULT OUT OF RANGE REFERENCE UNITS LAB L100.1000 4.4-11.0 K/mm3 Normal WBC 8.9 LAB L100.1200 4.2-5.4 M/mm3 Normal RBC 4.73 LAB L100.1300 12.0-15.0 g/dl Normal HGB 13.6 LAB L100.1400 37-47 % Normal HCT 40.2 LAB L100.1500 81-99 fL Normal MCV 85.0 LAB L100.1600 27.0-32.0 pg Normal MCH 28.8 LAB L100.1700 32-36 g/gl Normal MCHC 33.8 LAB L100.1810 11.6-14.6 % Normal RDW CV 13.5 LAB L100.1820 35.1-43.9 fl Normal RDW SD 42.1 LAB L100.1900 150-450 K/mm3 Normal PLT 293 LAB L100.2000 6.2-12.0 fl Normal MPV 9.8 LAB L100.2100 47-70 % Normal NEUT% 67.3 LAB L100.2200 19-41 % Normal LY% 26.7 LAB L100.2300 0-10 % Normal MONO% 4.1 LAB L100.2400 0-5 % Normal EO% 1.6 LAB L100.2500 0-1 % Normal BASO% 0.2 LAB L100.2550 0.0-0.9 % Normal IM GRAN % 0.100 Result Comment: IG% - Immature Granulocytes (promyelocytes, myelocytes and metamyelocytes) > 1% indicates that a LEFT SHIFT is Present. LAB L100.2620 2.0-7.7 X10 3/uL Normal Absolute Neut 6.0 LAB L100.2720 0.83-4.51 X10 3/ul Normal Absolute Lymph 2.37 Performed By: #### L100.0100 #### [facility] [address] [place], [place], [id number] URINALYSIS, ROUTINE Collected: 09/07/2017 Status: F Source: CARRIE (DIPSTICK) 10:10 AM [facility] REPOSITORY Order Comment: How was Urine Obtained? Urine, Random TYPE CODE TESTS RESULT OUT OF RANGE REFERENCE UNITS LAB L400.3000 Yellow COLOR Normal Yellow LAB L400.3050 Clear Normal CLARITY Sl. Cloudy LAB L400.3200 Normal mg/dl Normal GLUCOSE, UR Normal LAB L400.3300 Negative mg/dL Normal BILIRUBIN URINE Negative LAB L400.3400 Negative mg/dl Normal KETONE UR Negative LAB L400.3465 1.002-1.030 Normal SP.GR. DIPSTX 1.005 LAB L400.3550 5.0 - 8.0 pH UR Normal 7.0 LAB L400.3600 Negative mg/dl PROT Normal DIPSTX Negative LAB L400.3700 Normal mg/dl Normal UROBILI Normal LAB L400.3750 Negative Normal NITRITE UR Negative LAB L400.3780 Negative /ul Normal OCCULT BLOOD-UR Negative LAB L400.3800 Negative /ul High LEUK 25 ESTERASE Performed By: #### L400.2010 #### [facility] [address] [place], [place], [address] THYROID STIM HORMONE Collected: 09/07/2017 Status: F Source: TWISP (TSH) 10:10 AM [facility] REPOSITORY TYPE CODE TESTS RESULT OUT OF RANGE REFERENCE UNITS LAB L501.9520 0.358-3.74 uIU/mL Normal TSH 2.33 Performed By: #### L501.9520 #### [facility] [place], [place], [address] T AND S-NO Collected: 09/07/2017 Status: F Source: CARRIE CHARGE W/PNP 10:10 AM [facility] REPOSITORY Order Comment: Reason for Type AND Screen/Red Cells: Surgery? N TYPE CODE TESTS RESULT OUT OF RANGE REFERENCE UNITS LAB B10.0800 O Normal BLOOD POSITIVE TYPE GEL LAB B100.4050 Normal Ab SCREEN NEGATIVE GEL Performed By: #### B100.7550 #### [facility] [place], [place], [address] RPR Collected: 09/07/2017 Status: F Source: CARRIE 10:10 AM [facility] REPOSITORY TYPE CODE TESTS RESULT OUT OF REFERENCE UNITS RANGE LAB L700.5100 NONREACTIVE Normal RPR NONREACTIVE Performed By: #### L700.5100 #### [facility] [address] [place], [address] RUBELLA IGG Collected: 09/07/2017 Status: F Source: CARRIE 10:10 AM [facility] REPOSITORY TYPE CODE TESTS RESULT OUT OF RANGE REFERENCE UNITS LAB L509.4000 IU/mL Normal Rubella IgG 18.7 Result Comment: Antibody results Interpretation of Immune Status < 5 IU/ml Presumed Non-immune 5 - < 10 IU/ml Equivocal > or = 10 IU/ml Presumed Immune Performed By: #### L509.4000, L3890.6005 #### [facility] [address] [facility] [place], [place], [address] HIV - WCH Collected: 09/07/2017 Status: F Source: TWISP 10:10 AM [facility] REPOSITORY TYPE CODE TESTS RESULT OUT OF RANGE REFERENCE UNITS LAB L3890.6005 Nonreactive Normal HIV - WCH Non-Reactive Performed By: #### L509.4000, L3890.6005 #### [facility] [place], [address] HEPATITIS B SURFACE Collected: 09/07/2017 Status: F Source: CARRIE AG 10:10 AM [facility] REPOSITORY TYPE CODE TESTS RESULT OUT OF RANGE REFERENCE UNITS LAB L3100.0400 Negative Normal HB Negative SURF AG Result Comment: Performed at: [facility] [id number] Cleaner Laboratory Equipment: Vamshi Benitez PhD, Phone: [phone] Performed By: #### L3100.0390, L3100.0625 #### [facility] (refer to report for specific site) refer to report for address and phone number HEPATITIS C ANTIBODIES Collected: 09/07/2017 Status: F Source: TWISP 10:10 AM [facility] REPOSITORY TYPE CODE TESTS RESULT OUT OF RANGE REFERENCE UNITS LAB L3100.0650 0.0-0.9 s/co ratio Normal HEP C AB <0.1 Result Comment: Negative: < 0.8 Indeterminate: 0.8 - 0.9 Positive: > 0.9 The CDC recommends that a positive HCV antibody result be followed up with a HCV Nucleic Acid Amplification test (291994). Performed By: #### L3100.0390, L3100.0625 #### [facility] (refer to report for specific site) refer to report for address and phone number CT/NG WCH BY PCR Collected: 08/24/2017 Status: F Source: TWISP 8:45 AM [facility] REPOSITORY TYPE CODE TESTS RESULT OUT OF RANGE REFERENCE UNITS LAB L8200.2100 Negative Normal Chlam Negative Trac PCR LAB L8200.2200 Negative Normal NG by Negative PCR Performed By: #### L8200.1999 #### [facility] [address] [place], [address] PAP I-G W/RFX HRHPV Collected: 08/24/2017 Status: F Source: TWISP 8:45 AM [facility] REPOSITORY Order Comment: CYTOLOGY INFORMATION: - CLINICAL INFORMATION: - DATE LMP/MENOPAUSE: 07/21/17 LMP - COLLECTION VIAL: Thin Prep Vial - SPEECH LANGUAGE PATHOLOGY ASSISTANT SOURCE: CERVICAL/ENDOCERVICAL - COLLECTION TECHNIQUE: BRUSH/SPATULA Specimen Comment: [id number] Specimen Comment: No. of containers..01 ThinPrep Vial TYPE CODE TESTS RESULT OUT OF RANGE REFERENCE UNITS LAB L7400.0800 . Normal DIAGN Comment Result Comment: NEGATIVE FOR INTRAEPITHELIAL LESION AND MALIGNANCY. LAB L7400.0900 . Normal ADEQ Comment Result Comment: Satisfactory for evaluation. Endocervical and/or squamous metaplastic cells (endocervical component) are present. LAB L7400.1400 . Normal PERFORM Comment Result Comment: Soniya Cortes, Intermodal Dispatcher (ASCP) LAB L7400.2575 . Normal TEST METHOD Comment Result Comment: This liquid based ThinPrep(R) pap test was screened with the use of an image guided system. LAB L7400.2600 . Normal . COMM LAB L7400.2700 . Normal PAPSMR Comment Result Comment: The Pap smear is a screening test designed to aid in the detection of premalignant and malignant conditions of the uterine cervix. It is not a diagnostic procedure and should not be used as the sole means of detecting cervical cancer. Both false-positive and false-negative reports do occur. LAB L7400.2800 . Normal HPV RFLX Comment Result Comment: The HPV DNA reflex criteria were not met with this specimen result therefore, no HPV testing was performed. Performed at: - [facility] [place] [id number] Cleaner Laboratory Equipment: Val Puga MD, Phone: [phone] Performed By: #### L7400.0350 #### [facility] (refer to report for specific site) refer to report for address and phone number HCG TITER QUANT., Collected: 08/21/2017 Status: F Source: TWISP SERUM 8:55 AM [facility] REPOSITORY TYPE CODE TESTS RESULT OUT OF RANGE REFERENCE UNITS LAB L700.8000 <9 non-preg mIU/mL High HCG 4390 QUANT. Performed By: #### L700.8000 #### [facility] [address] [place], [place], [address] PROGESTERONE LEVEL Collected: 08/18/2017 Status: F Source: TWISP 8:53 AM [facility] REPOSITORY TYPE CODE TESTS RESULT OUT OF REFERENCE UNITS RANGE LAB L509.4001 See Comment ng/mL Progesterone Normal 56.39 Result Comment: Progesterone Reference Table: UNITS Female: Follicular 0.15 - 1.40 ng/mL Luteal 3.34 - 25.56 ng/mL Mid-luteal 4.44 - 28.03 ng/mL Postmenopausal 0.0 - 0.73 ng/mL : 1st Trimester 11.22 - 90.00 ng/mL 2nd Trimester 25.55 - 89.40 ng/mL 3rd Trimester 48.40 -422.50 ng/mL Performed By: #### L509.4001 #### [facility] [address] [place], [place], [address] HCG TITER QUANT., Collected: 08/18/2017 Status: F Source: TWISP SERUM 8:53 AM [facility] REPOSITORY TYPE CODE TESTS RESULT OUT OF RANGE REFERENCE UNITS LAB L700.8000 <9 non-preg mIU/mL High HCG 1343 QUANT. Performed By: #### L700.8000 #### [facility] [address] [place], [address] ALLERGIES ALLERGIES DATE TYPE / CODE NAME / CODE REACTION SEVERITY SOURCE Drug bee venom Anaphylaxis Unknown Boy[place] 8 Allergy/[id number]( protein ([facility] SN[facility]) bee)/[id number] Hospital 5(RXNORM) Repository Miscellaneous No Known Drug Moderate Neeraj Syed Allergy/956191518( Allergies ([facility]) Modifier) Hospital (Qualifier Repository Value) ENCOUNTERS ENCOUNTERS ADMIT/DISCHARGE ACCOUNT ADMITTING ENCOUNTER LOCATION SOURCE NUMBER CLASS 04/15/2018/ [id number] Donald Walls Inpatient Boy[place] Carrie 8 1 Encounter [facility] ing:WPRoom: Repository [id number]: 1 04/07/2018/ [id number] Ambulatory Carrie Boyden 8 9 [facility] ing:WPOUTRoom Repository : WP012 03/27/2018 [id number] Ambulatory Carrie Boyden 7 [facility] ing:LABSPEC Repository 02/23/2018/ [id number] Ambulatory Carrie Carrie 8 1 [facility] ing:WPOUTRoom Repository : WP014 02/06/2018 [id number] Ambulatory Carrie Carrie 0 [facility] ing:WOBLAB Repository 11/14/2017 [id number] Ambulatory Carrie Carrie 0 [facility] ing:WOBLAB Repository 10/07/2017/ [id number] STACY MACK Emergency [facility] [place] [address] 8 oom: ERBed: [facility] Repository 09/07/2017 [id number] Ambulatory Boyden Carrie 7 [facility] ing:WOBLAB Repository 08/24/2017 [id number] Ambulatory Carrie Carrie 3 [facility] ing:LABSPEC Repository 08/21/2017 [id number] Ambulatory Boyden Boyden 1 [facility] ing:WOBLAB Repository 08/18/2017 [id number] Ambulatory Carrie Boyden 0 [facility] ing:WOBLAB Repository PAYERS PAYERS ENCOUNTER GUARANTOR PAYER SUBSCRIBER SOURCE 04/15/2018 ROSARIO Valdes Primary ROSARIO [address] Insurance:CROOK RODRIGOB: [facility] [facility] [id number] Number: Repository [phone]: [phone] [id number] [phone] () Date:2559-63-98OQ [address] [place] [phone]: 04/15/2018 Secondary NOT GIVENUNK Carrie Insurance:SELF PAY [facility] Number: Effective Repository Date:2018-04-10 04/07/2018 ROSARIO R Primary ROSARIO R Boyden [address] Insurance:PARAMOUNT MACKEYDOB: Community 6[facility] [id number] [address]Sog: ([phone]) Number: Repository [phone] () [id number] Date:2683-04-35YG [address] [place] [phone]: 04/07/2018 Secondary NOT GIVENUNK Carrie Insurance:SELF PAY [facility] Number: Effective Repository Date:2018-04-07 03/27/2018 ROSARIO MACKEYPO Primary ROSARIO MACKEYDOB: Carrie [address] [place] [address], Insurance:PARAMOUNT [id number] [facility] [address]Cgj: [facility] Number: Repository () [id number] Date:6205-91-16GU [address] [place] [phone]: 03/27/2018 Secondary NOT GIVENUNK Boyden Insurance:SELF PAY [facility] Number: Effective Repository Date:2018-03-27 2018 ROSARIO MACKEYPO Primary ROSARIO MACKEYDOB: Carrie [address], Insurance:PARAMOUNT [id number] [facility] [address]Dqf: [facility] Number: Repository () [id number] Date:2775-08-26QB [address] [place] [phone]: 2018 Secondary NOT GIVENUNK Carrie Insurance:SELF PAY [facility] Number: Effective Repository Date:2018 02/06/2018 ROSARIO MACKEYPO Primary ROSARIO MACKEYDOB: Carrie [address], Insurance:CROOK [id number] [address]Smy: [facility] Number: Repository () [id number] Date:3968-46-88NH [address] [place] [phone]: 02/06/2018 Secondary NOT GIVENUNK Carrie Insurance:SELF PAY [facility] Number: Effective Repository Date:2018-02-06 11/14/2017 ROSARIO MACKEYPO Primary ROSARIO MACKEYDOB: Carrie [facility], Insurance:CROOK [id number] [facility] Hospital [address]Vfj: [facility] Number: Repository () [id number] Date:[id number] [address]DR: 11/14/2017 Secondary NOT GIVENUNK Carrie Insurance:SELF PAY [facility] Number: Effective Repository Date:2017-11-14 10/07/2017 ROSARIO R Primary ROSARIO R Neeraj Callahanne MACKEYDOB: Insurance:[facility]: [facility] [id number] ADVANTAGE [id number] Hospital [address] [facility] [address] Repository [place] Number: [facility] [id number]: Date:Plan Name: () 09/07/2017 ROSARIO MACKEYPO Primary ROSARIO MACKEYDOB: Carrie [address], Insurance:MEDICAIDPoli [id number] University Hospital [address]Bxb: [place] Number: [facility] [id number] Repository () Date:2017-09-07 09/07/2017 Secondary NOT GIVENUNK Carrie Insurance:SELF PAY [facility] Number: Effective Repository Date:2017-09-07 08/24/2017 ROSARIO RAY Primary Insurance:SELF NOT GIVENUNK [address] [address]Lzy: Number: Effective Hospital Date:2017-08-24 Repository () 08/21/2017 ROSARIO RAY Primary Insurance:SELF NOT GIVENUNK [address] [address]Npy: Number: Effective Hospital Date:2017-08-21 Repository () 08/18/2017 ROSARIO RAY Primary Insurance:SELF NOT GIVENUNK [address] [address]Dcd: Number: Effective Hospital Date:2017-08-18 Repository ()
== END ==
PROVIDERS: Visit Provider Obstetrics & Gynecology
DX: Z36.85 Encounter for antenatal screening for Streptococcus B (principal)
CPT/HCPCS: 87081

== ENCOUNTER 2018-04-07 03:10 | Outpatient (CLI) | payer MEDICAID, SELFPAY ==
[2018-04-07 05:22] VITALS: BMI 38.0
[2018-04-07 09:09] VITALS: BP 122/73; PULSE 88; RESP 18; TEMP 36.2
--- NOTE | 2018-04-07 21:32 | OB.TRI.NOTE ---
History of Present Illness Was patient seen by the physician?: No Reason For Visit: R/O LABOR Date of Service: 04/07/18 Final ESE: 04/24/18 Final ESE Source: US <20 weeks Gestational age: 37 Weeks and 4 Days History of Present Illness: 37-week intrauterine presents with regular uterine contractions. Denies any leaking of fluid. Good movement noted. Allergies bee venom protein (honey bee) Allergy (Verified 02/23/18 19:31) Anaphylaxis Physical Exam Vitals: Vital Signs Temp Pulse Resp BP 97.1 F L 88 18 122/73 H 04/07/18 09:09 04/07/18 09:09 04/07/18 09:09 04/07/18 09:09 NST - FHR Rate Baby A NST Reactive:: Yes FHR Category:: Category I - FHR Rate Baby B Baseline: Regular uterine contractions noted but diminished as patient was observed. Impression/Plan 37+ week intrauterine with false labor. Reactive nonstress test. Patient was released to home and instructed to return if contractions grew stronger or leakage of fluid noted or decreased movement. Otherwise routine follow-up.
== END 2018-04-07 09:15 | disposition home or self-care (01) ==
LOC: WPOUT 04:16 → WP 04:22
PROVIDERS: Visit Provider Obstetrics & Gynecology
DX: O47.1 False labor at or after 37 completed weeks of gestation (principal); Z3A.37 37 weeks gestation of pregnancy
CPT/HCPCS: 59025; 59050; 99218; G0378

== ENCOUNTER 2018-04-15 22:52 | Inpatient (IN) | payer MEDICAID, SELFPAY ==
[2018-04-15] MEDS: Lactated Ringers 1,000 ML 50 ML IV (23:30)
[2018-04-15 23:38] VITALS: BMI 37.7
[2018-04-15] MEDS: Oxytocin 30 units/NS 500 ml 30 UNITS/500 ML IV.SOLN 167 UNITS IV (23:45)
[2018-04-16] MEDS: Oxytocin 30 units/NS 500 ml 30 UNITS/500 ML IV.SOLN 334 UNITS IV (00:05)
--- NOTE | 2018-04-16 00:19 | PLAC_PTH ---
PATIENT: ROSARIO VELASCO LOC: [facility] U#:[id number] AGE/SX: 33/F ROOM: WP018 RE04/15/[address]: Dr. Donald Walls MD : 1985 BED: 1 DIS: 04/17/2018 SPEC #: [id number] RECD: 04/16/18 01:48 STATUS: POLO REAdán #: [id number] ACE: 04/16/18 00:[address]: Donald Walls DEPT: SURGICAL PATHOLOGY RECD BY: Bladimir Bradley ENTERED: 04/16/18 09:33 SP TYPE: PLACENTA OTHR DR: No Primary Care Phys Tissues: Placenta, NOS Procedures: Surgery Specimen Level V HEADER OPERATION: Vaginal delivery PRE-OP DIAGNOSIS: Meconium TISSUE SUBMITTED: Placenta MICROSCOPIC DIAGNOSIS Mckeon placenta (493 gm): Umbilical cord - trivascular with no inflammation. Placental membranes - acute chorionitis and deciduitis. Placental disc - Aaron-Amado change and acute and chronic decidual inflammation. AM:raul 04/17/18 MICROSCOPIC DESCRIPTION Slides are reviewed. GROSS DESCRIPTION SPECIMEN: PLACENTA / CLINICAL INFORMATION: A. Weight: 3.584 B. Gestational Age: 38 weeks C. Sex: Female PLACENTAL WEIGHT (POST FIXATION): 493 gm PLACENTAL DIMENSIONS: 16.5 x 14 x 3 cm PLACENTAL SHAPE: Usual ovoid PLACENTAL WEIGHT FOR GESTATIONAL AGE: Within 10-99th percentile MEMBRANES - Present A. Insertion: Marginal B. Site of rupture from edge: At edge of placental disc C. Color of membrane: Payne-perez D. Abnormalities: None UMBILICAL CORD - Present A. Color: Payne-perez B. Insertion: Eccentric C. Length: 40 cm D. Diameter: 1.5 cm E. Number of vessels: Three F. Abnormalities: None PLACENTAL DISC - Present A. Color of surface: Payne-perez B. surface abnormalities: None C. Maternal cotyledons: Intact with minimal tears D. Attached retro placental clot: No clot E. Cut surface: Dark red and spongy F. Lesions: None G. Separate clot: Absent SECTIONS SUBMITTED: 1. Membrane roll and umbilical cord ( end notched) 2. Placental disc, and maternal surfaces 3. Placental disc, and maternal surfaces 4. Placental disc, and maternal surfaces AM:raul 04/16/18 TC:2 CPT: 14179
--- NOTE | 2018-04-16 00:23 | PCM.OB.VAG ---
Vaginal Delivery Maternal Presentation: Active Labor 38w4d ega in active labor Amniotic Membrane Rupture Type: Artificial Rupture of Membrane time: 2330 Amniotic Fluid Description: Moderate meconium Final ESE: 04/25/18 Final ESE Source: US <20 weeks Gestational age: 38 Weeks and 5 Days [place] doctor who attended delivery (if requested by OB): Adriana Elise Date of Procedure: 04/15/18 Pre-Operative Diagnosis: Labor Post-Operative Diagnosis: same Surgery/ Procedure Performed: Spontaneous Vaginal Delivery Type of Anesthesia: None Description of Procedure: Presented at 8 cm dilated. After AROM progressed within 10 minutes to FD then pushed for 2 contractions to deliver a live female without complication. At delivery the cord was clamped and cut and the baby taken to the warmer for evaluation. Apgars were 8/9. The placenta was delivered spontaneously intact with a marginally located 3VC with possible vessels transversing the membranes. Meconium staing was noted. The uterus contracted well. The cervix and vagina was inspected and there was a small posterior vaginal first degree tear. This was repaired under local anesthetic with 2-0 Vicryl Presentation: Vertex Placental Delivery Description: Spontaneous Placenta Disposition: Sent to Pathology Percentage of Placenta Abruption: 0 Cord Vessel Description: 3 Vessels Nuchal Cord Compression: Without compression Cord Entanglement: None Estimated Blood Loss: 400cc Infant A gender: Female (1 minute): 8 (5 minute): 9 Episiotomy Description: None Laceration: Midline, Vaginal Extension/lac, 1st degree Medications given after delivery: IV Pitocin Complications: None
--- NOTE | 2018-04-16 00:30 | DCINST_ITS ---
Discharge Diet: No Restrictions Discharge Activity: Return to Normal Activity, May Drive, May Shower Return to work on:: 06/17/18 May resume sexual activity in: 6 weeks Call your doctor if your incision/area has: Sudden Increased Bleeding, Increased Pain/ Swelling, Foul Smelling Discharge Call your doctor if you observe: Fever of 101 or Higher, Inability to urinate, Inability to have a bowel movement, Using more than one pad per hour, Shortness of breath, Chest pain, Calf discomfort, Uncontrolled pain Cleanse incision/area with: Soap & Water Additional Instructions: If you experience any of the following, contact your healthcare provider. * Bleeding that soaks a pad every hour for 2 hours * Fever 100.4 or higher * Unrelieved incision or abdominal pain * Swelling, redness, discharge or bleeding from your incision or episiotomy site * Your incision begins to separate * Problems urinating (including inability to urinate or burning while urinating). * Visual changes * Severe headache * Flu-like symptoms * Pain or redness in one of both of your breasts * Pain, warmth, tenderness or swelling in your legs, especially the calf area * Frequent nausea and vomiting * Symptoms of depression or anxiety If you experience any of the following, call 911 or go to the nearest Emergency Room. * Chest pain * Problems breathing * Seizure activity * Partial or complete paralysis of a body part, slurred speech, weakness or drooping of the face, or a sudden inability to walk or hold your balance Allergies/Adverse Reactions: Allergies bee venom protein (honey bee) Allergy (Verified 04/15/18 23:19) Anaphylaxis Medications to take at Discharge Pantoprazole Sodium [Protonix] 40 mg PO DAILY 02/23/18 Vits [Prenatabs FA ] 1 tablet PO DAILY 02/23/18 Enoxaparin [Lovenox] 40 mg SC DAILY@0600 syringe 04/16/18 Ibuprofen 600 mg PO 4X/DAY #30 tab 04/16/18 The following prescriptions were given: Ibuprofen 600 mg PO 4X/DAY #30 tab Please Follow Up With: Donald Walls MD When: 6 weeks Primary Care Physician: Care Physician,No Primary [Primary Care Provider] - Test Results: Test results from this visit will be discussed in further detail at your follow- up appointment, if applicable. Proposed Discharge Date: 04/17/18
[2018-04-16 00:56] LABS: Hemoglobin 11.3 g/dl (12.0-15.0); Mean Corp Hgb Conc 33.2 g/gl (32-36); Mean Corpuscular Hgb 28.5 pg (27.0-32.0); Mean Corpuscular Volume 85.9 fL (81-99); Mean Platelet Vol. 10.5 fl (6.2-12.0); Platelet Count 243 K/mm3 (150-450); RBC Distribution Width CV 13.2 % (11.6-14.6); RBC Distribution Width SD 40.8 fl (35.1-43.9); Red Blood Count 3.96 M/mm3 (4.2-5.4); White Blood Count 18.8 K/mm3 (4.4-11.0)
[2018-04-16 00:58] LABS: Scan Indicated on CBC? Y/N NO
[2018-04-16] MEDS: Ibuprofen 600 MG Tablet PO ×3 (01:13→14:19)
[2018-04-16] MEDS: Acetaminophen 500 MG Tablet 1000 MG PO ×3 (01:13→20:52)
[2018-04-16 02:17] VITALS: BP 109/76; PULSE 93; RESP 18; TEMP 36.2
[2018-04-16] MEDS: Enoxaparin 40 MG/0.4 ML Syringe SC (05:30)
[2018-04-16 05:39] VITALS: BP 140/79; PULSE 99; RESP 18; TEMP 35.8
[2018-04-16 05:46] LABS: Hemoglobin 10.2 g/dl (12.0-15.0); Mean Corp Hgb Conc 32.9 g/gl (32-36); Mean Corpuscular Hgb 28.4 pg (27.0-32.0); Mean Corpuscular Volume 86.4 fL (81-99); Mean Platelet Vol. 10.2 fl (6.2-12.0); Platelet Count 233 K/mm3 (150-450); RBC Distribution Width CV 13.2 % (11.6-14.6); RBC Distribution Width SD 40.4 fl (35.1-43.9); Red Blood Count 3.59 M/mm3 (4.2-5.4); White Blood Count 19.1 K/mm3 (4.4-11.0)
[2018-04-16 05:47] LABS: Scan Indicated on CBC? Y/N NO
[2018-04-16 07:45] VITALS: BP 107/64; PULSE 90; RESP 18; TEMP 36.1; O2SAT 98
--- NOTE | 2018-04-16 08:10 | PCM.PN.OB ---
Subjective: No specific complaints. Breast feeding. Bleeding appropriate. Objective: Afeb VSS Hgb appropriate PP day#1. - Physical Exam General: Alert, Oriented x3, Cooperative, No apparent distress Lungs: Clear to auscultation, Normal air movement Cardiovascular: Regular rate, Regular Rhythm Abdomen: Soft, Non Tender, Non-Distended, - - Fundus nontender Extremities: No edema Skin: No rashes Neurological: Neuro grossly intact Psych/Mental Status: Normal Affect Comment: Lochia light Vital Signs Temp Pulse Resp BP 96.4 F L 99 18 140/79 H 04/16/18 05:39 04/16/18 05:39 04/16/18 05:39 04/16/18 05:39 Oxygen Delivery Method Room Air Weight: 248 lb Body Mass Index (BMI) 37.7 Intake and Output for Last 24 Hours 04/14/18 04/15/18 04/16/18 23:59 23:59 23:59 Output Total 550 / 550 Balance -550 / -550 Laboratory Tests Past 24 Hrs 04/16/18 04/16/18 04/16/18 00:45 00:45 05:35 WBC 18.8 H 19.1 H RBC 3.96 L 3.59 L Hgb 11.3 L 10.2 L Hct 34.0 L 31.0 L MCV 85.9 86.4 MCH 28.5 28.4 MCHC 33.2 32.9 RDW 13.2 13.2 RDW Differential 40.8 40.4 Plt Count 243 233 MPV 10.5 10.2 Blood Type O POSITIVE Antibody Screen NEGATIVE Medical Necessity - Tobacco Use Smoking Status: Current every day smoker Assessment/Plan Doing well on PP day#1. Continue routine PP care.
[2018-04-16] MEDS: Pantoprazole Sodium 40 MG Tablet PO (09:57)
[2018-04-16] MEDS: Prenatal Vits Tablet 1 TABLET PO (09:59)
[2018-04-16 12:10] VITALS: BP 129/64; PULSE 92; RESP 18; TEMP 36.1; O2SAT 98
[2018-04-16 16:35] VITALS: BP 132/71; PULSE 80; RESP 16; TEMP 36.1; O2SAT 99
[2018-04-16 20:40] VITALS: BP 120/76; PULSE 80; RESP 16; TEMP 37; O2SAT 100
[2018-04-17 01:00] VITALS: BP 108/60; PULSE 86; RESP 16; TEMP 36.8; O2SAT 100
[2018-04-17 04:21] VITALS: BP 108/59; PULSE 85; RESP 18; TEMP 36.9; O2SAT 98
[2018-04-17] MEDS: Enoxaparin 40 MG/0.4 ML Syringe SC (06:01)
[2018-04-17] MEDS: Ibuprofen 600 MG Tablet PO (06:02)
[2018-04-17 08:15] VITALS: BP 132/67; PULSE 87; RESP 16; TEMP 36.1; O2SAT 100
--- NOTE | 2018-04-17 08:27 | PCM.PN.OB ---
Subjective: No complaints this morning. Bleeding light. Breast feeding. Objective: Afeb VSS - Physical Exam General: Alert, Oriented x3, Cooperative, No apparent distress Lungs: Clear to auscultation, Normal air movement Cardiovascular: Regular rate, Regular Rhythm Abdomen: Soft, Non Tender, Non-Distended, - - Fundus nontender Extremities: No edema, No Calf Tenderness Skin: No rashes Neurological: Neuro grossly intact Psych/Mental Status: Normal Affect Comment: Lochia light Vital Signs Temp Pulse Resp BP Pulse Ox 97.0 F L 87 16 132/67 H 100 04/17/18 08:15 04/17/18 08:15 04/17/18 08:15 04/17/18 08:15 04/17/18 08:15 Oxygen Delivery Method Room Air Weight: 248 lb Body Mass Index (BMI) 37.7 Intake and Output for Last 24 Hours 04/15/18 04/16/18 04/17/18 23:59 23:59 23:59 Output Total 550 / 550 Balance -550 / -550 Medical Necessity - Tobacco Use Smoking Status: Current every day smoker Assessment/Plan Doing well on PP day#2. Cleared for discharge home today. Home going instructions and warnings given.
--- NOTE | 2018-04-17 08:30 | DS.PCM_ITS ---
Discharge Date and Diagnosis Date of Admission: 04/15/18 Date of Discharge: 04/17/18 - Primary Discharge Diagnosis S/P Hospital Course and Treatment Operations: None Procedures: - - Summary of Care Provided: The patient is a 33 year old F [] Admitted at 38w5d [facility] in advanced active labor. Progressed to FD then pushed for a short time to deliver a live female neionate without complication. Post course unremarkable. Discharged home on PP day#2. - Physical Exam Vital Signs Temp Pulse Resp BP Pulse Ox 97.0 F L 87 16 132/67 H 100 04/17/18 08:15 04/17/18 08:15 04/17/18 08:15 04/17/18 08:15 04/17/18 08:15 Oxygen Delivery Method Room Air Weight: 248 lb Body Mass Index (BMI) 37.7 Intake and Output for Last 24 Hours 04/15/18 04/16/18 04/17/18 23:59 23:59 23:59 Output Total 550 / 550 Balance -550 / -550 Discharge Diet: No Restrictions Discharge Activity: Return to Normal Activity, May Drive, May Shower Return to work on:: 06/17/18 May resume sexual activity in: 6 weeks Call your doctor if your incision/area has: Sudden Increased Bleeding, Increased Pain/ Swelling, Foul Smelling Discharge Call your doctor if you observe: Fever of 101 or Higher, Inability to urinate, Inability to have a bowel movement, Using more than one pad per hour, Shortness of breath, Chest pain, Calf discomfort, Uncontrolled pain Cleanse incision/area with: Soap & Water Home Medications: Medications to take at Discharge Pantoprazole Sodium [Protonix] 40 mg PO DAILY 02/23/18 Vits [Prenatabs FA ] 1 tablet PO DAILY 02/23/18 Enoxaparin [Lovenox] 40 mg SC DAILY@0600 syringe 04/16/18 Ibuprofen 600 mg PO 4X/DAY #30 tab 04/16/18 Following Prescrptions Were Given to Patient: Ibuprofen 600 mg PO 4X/DAY #30 tab Primary Care Physician: Care Physician,No Primary [Primary Care Provider] - Please Follow Up With: Donald Walls MD When: 6 weeks Disposition: Home Minutes spent on discharge:: 15 Patient Condition:: Good Medical Necessity - Tobacco Use Smoking Status: Current every day smoker Meaningful Use Info Meaningful Use Diagnoses (Choose all that apply): None applicable
[2018-04-17 08:51] VITALS: BP 132/67; PULSE 87; RESP 16; TEMP 36.1; O2SAT 100
[2018-04-18 10:05] LABS: Pathology Specimen OB SEE PATHOLOGY REPORT
--- OUTSIDE RECORDS SUMMARY | 2018-07-18 14:11 | XMS RPT_ITS ---
:1985 Author Organization [place] Support Name Relationship Address Phone LATONYA VELASCO Unavailable [address] + [address] [place] [address] [facility] Unavailable [address] + [place] [address] LATONYA VELASCO Unavailable [address] + [place] [address] [facility] Unavailable [address] + [place] [address] LATONYA VELASCO Unavailable [address] + [place] [address] [facility] Unavailable [address] + [place] [address] LATONYA VELASCO Unavailable [address] + [place] [address] [facility] Unavailable [address] + [place] [address] KRISTA LATONYA Unavailable [address] + [place] [address] [facility] Unavailable [address] +. [place] [address] LATONYA VELASCO Unavailable [address] + [place] [address] [facility] Unavailable [address] +. [place] [address] LATONYA VELASCO Unavailable [address] + [address] [place], [place] [id number] NOT GIVEN Unavailable Unavailable Unavailable LATONYA VELASCO Unavailable [address] + [place] [address] [facility] Unavailable [address] +. [place] [address] LATONYA VELASCO Unavailable [address] + [place] [address] [facility] Unavailable [address] +[place] [address] LATONYA VELASCO Unavailable [address] + [place] [address] [facility] Unavailable [address] +. [place] [address] LATONYA VELASCO Unavailable [address] + [place] [address] [facility] Unavailable [address] +[place] [address] Care Team Providers Name Role Phone STACY MACK Admitting Unavailable STACY MACK Attending Unavailable NO, DOCTOR ON Referring Unavailable STACY MACK Primary Care Unavailable NO, DOCTOR ON Consulting Unavailable Sealalon, Donald Admitting Unavailable Seals, Donald Attending Unavailable Seals, Donald Referring Unavailable Primay Care Physicia, No Primary Care Unavailable Seals, Donald Attending Unavailable Seals, Donald Attending Unavailable Seals, Donald Attending Unavailable Seals, Donald Attending Unavailable AmilcarkoCrystal chi Attending Unavailable Seals, Donald Attending Unavailable Gilda-Benjamín, Margot Attending Unavailable Gail, Margot Referring Unavailable Seals, Donald Attending Unavailable David Katz Attending Unavailable PROBLEMS PROBLEMS DATE TYPE CONDITION / CODE ATTENDING STATUS SOURCE 03/27/2018 Unknown Z36.85 - Encounter Donald Walls Active [place] for Community screening for Hospital Streptococcus B / Repository Z36.85(ICD-10) 02/06/2018 Unknown Z34.83 - Encounter Donald Walls Active [place] for supervision of Community other normal Hospital , third Repository trimester / Z34.83(ICD-10) 11/21/2017 Unknown Z34.82 - Encounter Crystal Nelson Active [place] for supervision of Community other normal Hospital , second Repository trimester / Z34.82(ICD-10) 09/07/2017 Unknown Z34.81 - Encounter Donald Walls Active [place] for supervision of Community other normal Hospital , first Repository trimester / Z34.81(ICD-10) 08/24/2017 Unknown Z12.4 - Encounter Titi Donald Active [place] for screening for Community malignant neoplasm Hospital of cervix / Repository Z12.4(ICD-10) 08/24/2017 Unknown Z11.3 - Encounter Titi Donald Active [place] for screening for Community infections with a Hospital predominantly Repository sexual mode of transmission / Z11.3(ICD-10) PROCEDURES PROCEDURES No Procedure Records FoundRESULTS RESULTS DISCHARGE SUMMARY Observed: 04/17/2018 Status: F Source: [facility] 8:30 AM [facility] REPOS[facility]ORY [facility] Medical Records Department [address] [address] Discharge Summary 04/17/18 0828 MR#: [id number] Acct: [id number] Name: ROSARIO VELASCO Rep #: [id number] : 1985 33 From: Donald Walls MD PCP: Care Physician, No Primary Status: ADM IN Location: [place] [address] Discharge Date and Diagnosis Date of Admission: 04/15/18 Date of Discharge: 04/17/18 - Primary Discharge Diagnosis S/P Hospital Course and Treatment Operations: None Procedures: - - Summary of Care Provided: The patient is a 33 year old F [] Admitted at [address] in advanced active labor. Progressed [...] F Source: [facility] NO DIFF 5:35 AM [facility] REPOSITORY Order Comment: Reason for Laboratory Test [...] fl Normal MPV 10.2 Performed By: #### L100.0500, L350.1800 #### [facility] [address] [place], [place], [address] CBC-COMPLETE BLOOD CNT Collected: 04/16/2018 Status: F Source: CARRIE NO DIFF 12:45 AM [facility] REPOSITORY TYPE CODE TESTS RESULT OUT OF [...] MPV 10.5 Performed By: #### L100.0500 #### [facility] [address] [place], [address] TYPE AND SCREEN Collected: 04/16/2018 Status: F Source: CARRIE 12:45 AM [facility] REPOSITORY Order Comment: Reason for Type AND Screen/Red Cells: ROUTINE TYPE CODE TESTS RESULT OUT OF RANGE REFERENCE UNITS LAB B10.0800 O Normal BLOOD TYPE GEL POSITIVE LAB B100.4000 Normal Antibody NEGATIVE Screen Performed By: #### B101.7450 #### [facility] [address] [place], [address] DISCHARGE INSTRUCTION Observed: 04/16/2018 Status: F Source: CARRIE 12:30 AM [facility] REPOS[facility]ORY [facility] Medical Records Department [address] [place] [address] Instructions for Home/Discharge Instructions 04/16/18 0029 MR#: [id number] Acct: [id number] Name: ROSARIO VELASCO Rep #: [id number] : 1985 33 From: Donadl Walls MD PCP: Care Physician, No Primary [...] OPERATIVE REPORT Observed: 04/16/2018 Status: F Source: [place] 12:27 AM [facility] REPOSITORY [facility] Medical Records Department [address] [place] [address] Operative Report 04/16/18 0023 MR#: [id number] Acct: [id number] Name: ROSARIO VELASCO Rep #: [id number] : 1985 33 From: Donald Walls MD PCP: Care Physician, No Primary Status: ADM IN Location: [place] [id number] Vaginal Delivery Maternal Presentation: Active Labor 38w4d [...] Primary Care Physician; Donald Walls MD Signed PATHOLOGY SPECIMEN OB Collected: 04/16/2018 Status: F Source: [place] 12:19 AM [facility] REPOSITORY Order Comment: Reason for Laboratory Test Placenta for lab studies Send Specimen For (Specify): Studies @ [facility] Lab:Routine Time of Procedure: 2344 Date of Procedure: 04/15/18 Reason specimen being sent to pathology (Hx/complications): meconium Type of specimen: Placenta Type of procedure performed: Other TYPE CODE TESTS RESULT OUT OF RANGE REFERENCE UNITS LAB L350.1800 SEE Normal PATH. PATHOLOGY Spec. OB REPORT Result Comment: Specimen submitted to Anatomical Pathology Department for testing. Performed By: #### L100.0500, L350.1800 #### [facility] [address] [place], [address] PLACENTA Observed: 04/16/2018 Status: F Source: [place] 12:19 AM [facility] REPOSITORY Patient: ROSARIO VELASCO : 1985 (33/F) Acct Num: [id number] Phys: Donald Walls MD Unit Num: [id number] Loc: WP JG710-1 Specimen: [id number] Received: 04/16/18147 Spec Type: PLACENTA TISSUES 1 TISSUES: Placenta, [...] surfaces 4. Placental disc, and maternal surfaces AM:raul 04/16/18 TC:2 CPT: 04474 HEADER OPERATION: Vaginal delivery PRE-OP DIAGNOSIS: Meconium TISSUE SUBMITTED: Placenta MICROSCOPIC DESCRIPTION Slides are reviewed. MICROSCOPIC DIAGNOSIS Mckeon placenta (493 gm): Umbilical cord - trivascular with no inflammation. Placental membranes - acute chorionitis and deciduitis. Placental disc - Aaron-Amado change and acute and chronic decidual inflammation. AM:raul 04/17/18 Signed Maynor Bowers, 04/17/18 <signature on file> Performed By: #### PPLABrendon #### [facility] [address] [place], [address] Observed: 03/27/2018 Status: F Source: [place] CULTURE, GROUP B 11:15 AM [facility] STREPTOCOCCUS REPOSITORY Comments: VAGINAL/RECTAL CHANDRIKA Culture Group B Beta Streptococcus is not isolated. Performed By: #### M100.1800 #### [facility] [address] [place], [address] CBC-COMPLETE BLOOD CNT Collected: 02/06/2018 Status: F Source: [place] NO DIFF 10:15 AM [facility] REPOSITORY TYPE CODE TESTS RESULT OUT OF [...] MPV 10.8 Performed By: #### L100.0500 #### [facility] [address] [place], [address] GLUCOSE CHALLENGE GEST Collected: 02/06/2018 Status: F Source: [place] 1H 50G 10:15 AM [facility] REPOSITORY TYPE CODE TESTS RESULT OUT OF RANGE REFERENCE UNITS LAB L501.0250 70-140 mg/dL Normal GLU GEST 127 50g 1H Performed By: #### L501.0250 #### [facility] [address] [place], [address] AFP TETRA QUAD Collected: 11/14/2017 Status: F Source: [place] SCREEN 9:43 AM [facility] REPOSITORY Order Comment: Is Patient ? Y [...] Normal LAB L3290.2100 . mIU/mL HCG VALUE 85762 Normal LAB L3290.2200 . HCG MOM 0.52 Normal LAB L3290.2300 . ng/mL UE3 VALUE 0.88 Normal LAB L3290.2400 . UE3 MOM 1.11 Normal LAB L3290.2500 . pg/mL TABBY VALUE-EIA Normal 210.25 LAB L3290.2600 . TABBY MOM VALUE 1.66 Normal LAB L3290.2700 . OSBR RISK 61809 Normal LAB L3290.2800 . DSR 2ND TRIMEST [...] identifies 60% of Trisomy 18 pregnancies. The [place] recommends amniocentesis be offered to women age 35 and older. Recalculations are not recommended when gestational dating by LMP and ultrasound are within 10 days. Performed By: #### L3290.0100 #### [facility] (refer to report for specific site) refer to report for address and phone number OB INITIAL< 14 Observed: 10/09/2017 Status: F Source: NEERAJ SPENCER; 1ST GESTATION 10:18 AM [place] [address] Patient: ROSARIO VELASCO Phone#: : 1985 Age: 32 Gender: F Pt. Type: ER Account: [id number] Location: 2 Ordering: STACY MACK Exam Date: 10/07/2017/10:17 Family Phys: NO DOCTOR Charge Code: 784006 Physician: Carter Order #: [id number] DLP Dose#: PROCEDURE: OB INITIAL <14 WEEKS ULTRASOUND, TRANSABDOMINAL COMPARISON: [facility], , OB INITIAL <14 WEEKS, 11/16/2011, 11:25. [...] EMERGENCY REPORT Observed: 10/09/2017 Status: F Source: NEERAJ SYED 4:53 AM [facility] EMERGENCY ROOM REPORT NAME ACCOUNT SEX AGE ADMIT DISCHARGE PT MED. RECORD# NUMBER DATE DATE TYPE ROSARIO VELASCO [id number] F 32 10/07/17 10/07/17 3 R [id number] ROOM: ER DATE OF : 1985 DICTATING [...] or spotting. She sees Dr. Walls in [place] for OB- STRATEGIC ANALYST. Presently rates the pain as a 5 [...] under the care of Dr. Walls in OB-STRATEGIC ANALYST. ALLERGIES: No known drug allergies. SOCIAL HISTORY: [...] erythema Page 1 of 3 ROSARIO VELASCO Emergency Room Report noted. No external auditory [...] motor or sensory deficits are noted. Hand nascar driver strong, symmetric. Skin is warm and dry. [...] Donald Liang DO 10/07/17 20:44 JOB #: [id number] Transcribed By: so 10/08/17 09:52 Page 2 of 3 ROSARIO VELASCO Emergency Room Report Electronically signed by: E-Sign: Dr. Donald Liang D.O. 10/09/17 04:52 Page 3 of 3 ROSARIO VELASCO Emergency Room Report US OB INITIAL >OR= Observed: 10/07/2017 Status: F Source: NEERAJ SYED 14 WEEKS; 1ST GESTAT 7:49 PM [place] [address] Patient: ROSARIO VELASCO. Phone#: : 1985 Age: 32 Gender: F Pt. Type: ER Account: [id number] Location: [facility] Ordering: STACY MACK Exam Date: 10/07/2017/10:17 Family Phys: NO DOCTOR Charge Code: 131320 Physician: Carter Order #: [id number] DLP Dose#: PROCEDURE: OB INITIAL <14 WEEKS ULTRASOUND, TRANSABDOMINAL COMPARISON: [facility], OB INITIAL <14 WEEKS, 11/16/2011, 11:25. INDICATIONS: [...] URINALYSIS Collected: 10/07/2017 Status: F [facility] REPOSITORY TYPE CODE TESTS RESULT OUT [...] ) NORMAL NORM Urobilinog LAB Sp NORMAL: [place](LOINC) 1.010-1.030 Sp 1.010 [place] LAB Nitrite(LOINC) NORMAL: NEGATIVE Nitrite NEG LAB [...] LAB Yeast(LOINC) Yeast NONE Performed By: #### [id number] #### [facility],[address] [place] [address] Observed: 10/07/2017 Status: F [facility] 7:48 PM [facility] REPOSITORY CULTURE URINE _URINE CULTURE_ M I C R O B I O L O G Y R E P O R T FINAL Antimicrobial Susceptibility and Organism Identification Report Specimen Number : [id number] Requested : 10/07/17 Specimen Source : URINE Collected : 10/07/17 19:48 [place] [facility] [place] : Emergency Room Received : 10/07/17 19:48 Requesting Physician : MARTINA Patient/Specimen Tests and Comments Specimen Comments FINAL REPORT: URINE COLONY COUNT: 50,000-100,000 CFU/CC >OR=TO 3 COLONY TYPES PROBABLE CONTAMINATION Tech : Source : URINE ID # : [id number] FINAL Report Date : / / : Collected : 10/07/17 19:48 10/10/17.1231.BKO. 10/09/17.1152.KLS. 10/10/17.1231.BKO.COMPLETE Performed By: #### [id number] #### [facility],[address] [place] [address] URINE DRUG SCREEN Collected: 09/07/2017 Status: F Source: [place] (VISTA) 10:10 AM [facility] REPOSITORY Order Comment: List of Drugs Taken or Suspected? UNK TYPE CODE TESTS RESULT OUT OF RANGE REFERENCE UNITS LAB L505.0075 TO BE Normal CONFIRMED Result Comment: CONFIRMATORY TESTING FOR ALL POSITIVE URINE DRUG SCREEN RESULTS WILL ONLY BE SENT OUT UPON PHYSICIAN ORDER. VISTA Urine Drug Screen methods provide only preliminary [...] NEGATIVE Performed By: #### L505.5000, L505.6240 #### [facility] [place], [address] NICOTINE URINE DRUG Collected: 09/07/2017 Status: F Source: [place] SCREEN 10:10 AM [facility] REPOSITORY Order Comment: List of Drugs Taken [...] Nicotine. Performed By: #### L505.5000, L505.6240 #### [facility] [address] [place], [place], [address] CBC W/DIFF, AUTOMATED Collected: 09/07/2017 Status: F Source: [place] 10:10 AM [facility] REPOSITORY TYPE CODE TESTS RESULT OUT OF [...] Lymph 2.37 Performed By: #### L100.0100 #### [facility] [address] [place], [place], [address] URINALYSIS, ROUTINE Collected: 09/07/2017 Status: F Source: [place] (DIPSTICK) 10:10 AM [facility] REPOSITORY Order Comment: How was Urine Obtained? [...] 25 ESTERASE Performed By: #### L400.2010 #### [facility] [address] [place], [place], [address] THYROID STIM HORMONE Collected: 09/07/2017 Status: F Source: [place] (TSH) 10:10 AM [facility] REPOSITORY TYPE CODE TESTS RESULT OUT OF RANGE REFERENCE UNITS LAB L501.9520 0.358-3.74 uIU/mL Normal TSH 2.33 Performed By: #### L501.9520 #### [facility] [address] [place], [address] T AND S-NO Collected: 09/07/2017 Status: F Source: [place] CHARGE W/PNP 10:10 AM [facility] REPOSITORY Order Comment: Reason for Type AND Screen/Red Cells: Surgery? N TYPE CODE TESTS RESULT OUT OF RANGE REFERENCE UNITS LAB B10.0800 O Normal BLOOD POSITIVE TYPE GEL LAB B100.4050 Normal Ab SCREEN NEGATIVE GEL Performed By: #### B100.7550 #### [facility] [address] [facility] [address] RPR Collected: 09/07/2017 Status: F Source: [place]RIE 10:10 AM [facility] REPOSITORY TYPE CODE TESTS RESULT OUT OF REFERENCE UNITS RANGE LAB L700.5100 NONREACTIVE Normal RPR NONREACTIVE Performed By: #### L700.5100 #### [facility] [address] [facility] [address] RUBELLA IGG Collected: 09/07/2017 Status: F Source: [place] 10:10 AM [facility] REPOSITORY TYPE CODE TESTS RESULT OUT OF RANGE REFERENCE UNITS LAB L509.4000 IU/mL Normal Rubella IgG 18.7 Result Comment: Antibody results Interpretation of Immune Status < 5 IU/ml Presumed Non-immune 5 - < 10 IU/ml Equivocal > or = 10 IU/ml Presumed Immune Performed By: #### L509.4000, L3890.6005 #### [facility] [address] [facility] [address] HIV - [facility] Collected: 09/07/2017 Status: F Source: [place] 10:10 AM [facility] REPOSITORY TYPE CODE TESTS RESULT OUT OF RANGE REFERENCE UNITS LAB L3890.6005 Nonreactive Normal HIV - [facility] Non-Reactive Performed By: #### L509.4000, L3890.6005 #### [facility] [address] [place], [address] HEPATITIS B SURFACE Collected: 09/07/2017 Status: F Source: [place] AG 10:10 AM [facility] REPOSITORY TYPE CODE TESTS RESULT OUT OF RANGE REFERENCE UNITS LAB L3100.0400 Negative Normal HB Negative SURF AG Result Comment: Performed at: [address], [place], [place] [id number] Test Pilot: Vamshi Benitez PhD, Phone: [phone] Performed By: #### L3100.0390, L3100.0625 #### [facility] (refer to report for specific site) refer to report for address and phone number HEPATITIS C ANTIBODIES Collected: 09/07/2017 Status: F Source: [place] 10:10 AM [facility] REPOSITORY TYPE CODE TESTS RESULT OUT OF RANGE REFERENCE UNITS LAB L3100.0650 0.0-0.9 s/co ratio Normal HEP C AB <0.1 Result Comment: Negative: < 0.8 Indeterminate: 0.8 - 0.9 Positive: > 0.9 The CDC recommends that a positive HCV antibody result be followed up with a HCV Nucleic Acid Amplification test (688914). Performed By: #### L3100.0390, L3100.0625 #### [facility] (refer to report for specific site) refer to report for address and phone number CT/NG WCH BY PCR Collected: 08/24/2017 Status: F Source: [place] 8:45 AM [facility] REPOSITORY TYPE CODE TESTS RESULT OUT OF RANGE REFERENCE UNITS LAB L8200.2100 Negative Normal Chlam Negative Trac PCR LAB L8200.2200 Negative Normal NG by Negative PCR Performed By: #### L8200.2000 #### [facility] [address] [place], [address] PAP I-G W/RFX HRHPV Collected: 08/24/2017 Status: F Source: [place] 8:45 AM [facility] REPOSITORY Order Comment: CYTOLOGY INFORMATION: - CLINICAL INFORMATION: - DATE LMP/MENOPAUSE: 07/21/17 LMP - COLLECTION VIAL: Thin Prep Vial - STRATEGIC ANALYST SOURCE: CERVICAL/ENDOCERVICAL - COLLECTION TECHNIQUE: BRUSH/SPATULA Specimen Comment: [id number] Specimen Comment: No. of containers..01 ThinPrep Vial TYPE CODE TESTS RESULT OUT OF RANGE REFERENCE UNITS LAB L7400.0800 . Normal DIAGN Comment Result Comment: NEGATIVE FOR INTRAEPITHELIAL LESION AND MALIGNANCY. LAB L7400.0900 . Normal ADEQ Comment Result Comment: Satisfactory for evaluation. Endocervical and/or squamous metaplastic cells (endocervical component) are present. LAB L7400.1400 . Normal PERFORM Comment Result Comment: Soniya Cortes, [employer] Storage Architect (ASCP) LAB L7400.2575 . Normal TEST METHOD [...] no HPV testing was performed. Performed at: [facility] [id number] Test Pilot: Val Puga MD, Phone: [phone] Performed By: #### L7400.0350 #### [facility] (refer to report for specific site) refer to report for address and phone number HCG TITER QUANT., Collected: 08/21/2017 Status: F Source: [place] SERUM 8:55 AM [facility] REPOSITORY TYPE CODE TESTS RESULT OUT OF RANGE REFERENCE UNITS LAB L700.8000 <9 non-preg mIU/mL High HCG 4390 QUANT. Performed By: #### L700.8000 #### [facility] [place], [address] PROGESTERONE LEVEL Collected: 08/18/2017 Status: F Source: [place] 8:53 AM [facility] REPOSITORY TYPE CODE TESTS RESULT OUT OF [...] -422.50 ng/mL Performed By: #### L509.4001 #### [facility] [address] [place], [address] HCG TITER QUANT., Collected: 08/18/2017 Status: F Source: [place] SERUM 8:53 AM [facility] REPOSITORY TYPE CODE TESTS RESULT OUT OF RANGE REFERENCE UNITS LAB L700.8000 <9 non-preg mIU/mL High HCG 1343 QUANT. Performed By: #### L700.8000 #### [facility] [address] [place], [address] ALLERGIES ALLERGIES DATE TYPE / CODE NAME / CODE REACTION SEVERITY SOURCE Drug bee venom Anaphylaxis Unknown [place] 8 Allergy/055023352( protein ([facility]) bee)/[id number] [place] [address](RXNORM) Repository Miscellaneous No Known Drug Moderate Neeraj Pomfaye Allergy/425639704( Allergies (Severity [facility] SNOMED CT) Modifier) Hospital (Qualifier Repository Value) ENCOUNTERS ENCOUNTERS ADMIT/DISCHARGE ACCOUNT ADMITTING ENCOUNTER LOCATION SOURCE NUMBER CLASS 04/15/2018/ [id number] Donald Walls Inpatient [place] 8 1 Encounter [facility] ing:WPRoom: Repository AB201Jdf: 1 04/07/2018/ [id number] Ambulatory [place] 8 9 [facility] ing:WPOUTRoom Repository : [id number] 03/27/2018 [id number] Ambulatory [place] 7 [facility] ing:LABSPEC Repository 02/23/2018/ [id number] Ambulatory [place] 8 1 [facility] ing:WPOUTRoom Repository : [id number] 02/06/2018 [id number] Ambulatory [place] 0 [facility] ing:WOBLAB Repository 11/14/2017 [id number] Ambulatory [place] 0 [facility] ing:WOBLAB Repository 10/07/2017/ [id number] STACY MACK [facility] [place], [place] [address]faye 8 oom: ERBed: [facility] Repository 09/07/2017 [id number] [place] 7 [facility] ing:WOBLAB Repository 08/24/2017 [id number] Ambulatory [place] 3 [facility] ing:LABSPEC Repository 08/21/2017 [id number] Ambulatory [place] 1 [facility] ing:WOBLAB Repository 08/18/2017 [id number] Ambulatory [place] 0 [facility] ing:WOBLAB Repository PAYERS PAYERS ENCOUNTER GUARANTOR PAYER SUBSCRIBER SOURCE 04/15/2018 ROSARIO R Primary ROSARIO R [place] [id number] N Insurance:PARAMOUNT MACKEYDOB: [facility] [address] [facility] [id number] Number: Repository [address]Kag: 330 [id number] [phone] () Date:4672-88-49HR [address] [address]SM: 04/15/2018 Secondary NOT GIVENUNK [place] Insurance:SELF PAY [facility] Number: Effective Repository Date:2018-04-10 04/07/2018 ROSARIO R Primary ROSARIO R [place] [address] Insurance:PARAMOUNT MACKEYDOB: [address] [id number] [address]Hfu: 330) Number: Repository [phone] () [id number] Date:9428-13-99FI[address] [address]KV: 04/07/2018 Secondary NOT GIVENUNK [place] Insurance:SELF PAY [facility] Number: Effective Repository Date:2018-04-07 03/27/2018 ROSARIO MACKEYPO Primary ROSARIO MACKEYDOB: [place] [address] [place] [address], Insurance:PARAMOUNT [id number] [address]Jdn: [facility] Number: Repository () [id number] Date:3712-87-96PO[address] [address]KB: 03/27/2018 Secondary NOT GIVENUNK [place] Insurance:SELF PAY [facility] Number: Effective Repository Date:2018-03-27 2018 ROSARIO MACKEYPO Primary ROSARIO MACKEYDOB: [place] [address], Insurance:TROY [id number] [place] [address]Cvo: [facility] Number: Repository () [id number] Date:5556-99-78KJ [address] [place] [address]XI: 2018 Secondary NOT GIVENUNK [place] Insurance:SELF PAY [facility] Number: Effective Repository Date:2018 02/06/2018 ROSARIO MACKEYPO Primary ROSARIO MACKEYDOB: [place] [address] Insurance:TROY [id number] [place] [address]Cgr: [facility] Number: Repository () [id number] Date:[id number] [address] [address]UG: 02/06/2018 Secondary NOT GIVENUNK [place] Insurance:SELF PAY [facility] Number: Effective Repository Date:2018-02-06 11/14/2017 ROSARIO MACKEYPO Primary ROSARIO MACKEYDOB: [place] [address], Insurance:TROY [id number] [address]Pio: [facility] Number: Repository () [id number] Date:[id number] [address] [place] [id number]: 11/14/2017 Secondary NOT GIVENUNK [place] Insurance:SELF PAY [facility] Number: Effective Repository Date:2017-11-14 10/07/2017 ROSARIO R Primary ROSARIO R Neeraj Callahanne MACKEYDOB: Insurance:TROY MACKEYDOB: [facility] [id number] ADVANTAGE [id number] Hospital [address] Repository WATER Number: [place] [id number]: Date:Plan Name: () 09/07/2017 ROSARIO MACKEYPO Primary ROSARIO KRISTADOB: [place] [address], [facility] [id number] [address]Mgt: [place] Number: Hospital [id number] Repository () Date:2017-09-07 09/07/2017 Secondary NOT GIVENUNK [place] Insurance:SELF PAY [facility] Number: Effective Repository Date:2017-09-07 08/24/2017 ROSARIO MACKEYPO Primary Insurance:SELF NOT GIVENUNK [place] [facility] [id number]: Number: Effective Hospital Date:2017-08-24 Repository () 08/21/2017 ROSARIO MACKEYPO Primary Insurance:SELF NOT GIVENUNK [place] [facility] [id number]: Number: Effective Hospital Date:2017-08-21 Repository () 08/18/2017 ROSARIO MACKEYPO Primary Insurance:SELF NOT GIVENUNK [place] [facility] [id number]: Number: Effective Hospital Date:2017-08-18 Repository ()
== END 2018-04-17 08:40 | disposition home or self-care (01) | DRG 560 ==
PROVIDERS: Admitting Provider Obstetrics & Gynecology; Referring Provider Obstetrics & Gynecology; Visit Provider Obstetrics & Gynecology
DX: O77.0 Labor and delivery complicated by meconium in amniotic fluid (principal); O70.0 First degree perineal laceration during delivery; O99.334 Smoking (tobacco) complicating childbirth; F17.200 Nicotine dependence, unspecified, uncomplicated; O26.23 Pregnancy care for patient with recurrent pregnancy loss, third trimester; O99.113 Other diseases of the blood and blood-forming organs and certain disorders involving the immune mechanism complicating pregnancy, third trimester; D68.2 Hereditary deficiency of other clotting factors; Z3A.38 38 weeks gestation of pregnancy; Z37.0 Single live birth
CPT/HCPCS: 36415; 59025; 59050; 85027; 86850; 86900; 88307; 99218; J7120; G0378

== ENCOUNTER → 2021-11-09 | Outpatient (CLI) | payer SELFPAY ==
[2021-11-09 16:10] LABS: Hematocrit 40.3 % (37-47); Hemoglobin 13.1 g/dL (12.0-15.0); Mean Corp Hgb Conc 32.5 g/dL (32-36); Mean Corpuscular Hgb 28.7 pg (27.0-32.0); Mean Corpuscular Volume 88.4 fL (81-99); Mean Platelet Vol. 9.8 fl (6.2-12.0); Platelet Count 341 K/mm3 (150-450); RBC Distribution Width SD 42.5 fl (35.1-43.9); Red Blood Count 4.56 M/mm3 (4.2-5.4); White Blood Count 8.6 K/mm3 (4.4-11.0)
[2021-11-09 21:14] LABS: Estradiol 539.1 pg/mL; Luteinizing Hormone 16.2 mIU/mL; T4 Free Direct 1.14 ng/dL (0.76-1.46); Thyroid Stim Hormone (TSH) 1.89 uIU/mL (0.358-3.74)
== END | disposition home or self-care (01) ==
PROVIDERS: Visit Provider Obstetrics & Gynecology
DX: N93.9 Abnormal uterine and vaginal bleeding, unspecified (principal)
CPT/HCPCS: 36415; 82670; 83001; 83002; 84439; 84443; 85027